=== PATIENT | female | born 1930 | race Caucasian/White ===

== ENCOUNTER 2016-11-28 16:16 | Inpatient (IN) | payer MEDICARE, BC ==
[~2016-11-28] VITALS: Ht 152.4 cm; Wt 48.9 kg
[~2016-11-28 16:16] MED LIST: ALBU8I INH; APIX2.5T PO; ASPI81TA82 PO; BACT800T5 PO; DIGO0.12 PO; DILT240C7 PO; MAGN1SOL2 PO; MAGO400T PO; MECL25 PO; METO25 PO; METO5TAB PO; PTU50 PO; SYMB80AE INH
[2016-11-28 16:18] VITALS: BP 126/57; PULSE 94; RESP 36; O2SAT 98
--- NOTE | 2016-11-28 16:28 | PD ---
Physical Exam Date Seen by Provider: Nov 28, 2016 Time Seen by Provider: 16:24 Narrative A 6-year-old female with history of increasing shortness of breath and hypoxia. Patient is O2 dependent. Patient was seen at a different hospital yesterday, she was diagnosed with UTI and COPD, treated with a breathing treatment and Bactrim. Patient is O2 dependent on 2 L at home. Patient has been increase in her shortness of breath over the past week. Dr. Wagoner is her primary care physician, who was upset that she didn't have a more complete workup yesterday, and recommended she be seen again today. Patient came in with an O2 sat of 88%. O2 sat at triage is currently 98% on 2 L Vitals are reviewed. Patient awaiting mental bed placement. Data Data Last Documented VS Vital Signs Date Time Temp Pulse Resp B/P (MAP) Pulse Ox O2 Delivery O2 Flow Rate FiO2 11/28/16 16:18 94 36 126/57 (80) 98 Room Air [facility] Medical Record Reviewed: Yes Supervised Visit with THAI: Yes Condition: Stable Rodriguez Pham Nov 28, 2016 16:28
--- NOTE | 2016-11-28 16:57 | RADRPT ---
EXAM DATE/TIME: 11/28/2016 16:43 [facility] COMPARISON: CT ABDOMEN & PELVIS W/O CONTRAST, January 16, 2015, 19:58. CHEST PA & LAT, January 16, 2015, 17:14 . INDICATIONS : Shortness of breath. MEDICAL HISTORY : Hypertension. Chronic obstructive pulmonary disease. Congestive heart SURGICAL HISTORY : Pacemaker. Defibrillator. ENCOUNTER: Initial ACUITY: 1 week PAIN SCORE: 0/10 LOCATION: Bilateral chest FINDINGS: PA and lateral views of the chest demonstrate the lungs to be symmetrically aerated without evidence of mass, infiltrate or effusion. The cardiomediastinal contours are unremarkable. Osseous structure s are intact. A left subclavian transvenous pacer remains in place. Atherosclerotic changes are prese nt in the aorta. Pancreatic calcifications are again noted in the upper abdomen. CONCLUSION: No acute disease. Howie Bach MD on November 28, 2016 at 16:54 Board Certified Radiologist. This report was verified electronically.
[2016-11-28] MEDS ORDERED: SODIUM CHLORIDE 0.9% FLUSH 10 ML FLUSH IVF PRN (18:30)
[2016-11-28] MEDS ORDERED: OXYBXL10 PO (18:42)
[2016-11-28] MEDS ORDERED: LACT1CAP4 (18:42)
[2016-11-28] MEDS ORDERED: ALBUAER3 INH (18:42)
[2016-11-28] MEDS ORDERED: POTA-163 PO (18:42)
[2016-11-28] MEDS ORDERED: REGL10TA5 PO (18:42)
[2016-11-28] MEDS ORDERED: LORA-392 PO (18:42)
[2016-11-28] MEDS ORDERED: NORC5TAB PO (18:42)
[2016-11-28] MEDS ORDERED: SYMB80AE INH (18:42)
[2016-11-28] MEDS ORDERED: OMEP20TA PO (18:42)
[2016-11-28] MEDS ORDERED: DIGO0.12 PO (18:42)
[2016-11-28] MEDS ORDERED: IPRASOL INH (18:42)
[2016-11-28] MEDS ORDERED: APIX2.5T PO (18:42)
[2016-11-28] MEDS ORDERED: METO25TA3 PO (18:42)
[2016-11-28] MEDS ORDERED: IPRA0.02 NEB (18:42)
[2016-11-28] MEDS ORDERED: CARD120T4 PO (18:42)
[2016-11-28] MEDS ORDERED: FURO40TA PO (18:42)
[2016-11-28] MEDS ORDERED: CREON12 PO (18:42)
[2016-11-28] MEDS ORDERED: PROP50TA2 PO (18:42)
--- NOTE | 2016-11-28 18:42 | PD ---
HPI Chief Complaint: Respiratory Symptoms Time Seen by Provider: 18:33 Travel History International Travel<30 days: No Contact w/Intl Traveler<30days: No Traveled to known affect area: No History of Present Illness HPI 81-year-old female came to the emergency room with history of progressive shortness of breath since yesterday. Her daughter is here who is very eager to give the entire history. Patient is hard of hearing as per her and hence she is applying the history. Patient was at [facility] yesterday for shortness of breath and cough. She received breathing treatments 445 minutes. Her white blood cell count was 20,000 and she was diagnosed with UTI and discharged home on Bactrim. Chest x-ray was negative as per the ER physician. Patient says that Bactrim was started and yesterday she was doing okay but this morning she started getting short of breath again. The albuterol at home has finished. She was not given refill prescription for that. Last albuterol was at 12:30 this afternoon. Patient requires home oxygen via nasal cannula 2 L all day. The oxygen demand has not increased. She was saturating initially 94% then she settled down on the stretcher it went up to 99% on the oxygen. No history of fever or chills. As per the daughter patient just recovered from double pneumonia one month ago. This afternoon she called patient's primary care physician who asked her to come to this emergency room to get reevaluated. [facility] Past Medical History Narrative Medical List of her past medical, surgical, social and family history is reviewed from the nursing note. Hx Anticoagulant Therapy: Yes (D/C X 4 DAYS AGO) Anemia: Yes Arthritis: Yes Asthma: No Atrial Fibrillation: Yes Autoimmune Disease: No Anxiety: No Depression: No Heart Rhythm Problems: Yes Cancer: Yes (FALLOPIAN CA) Cardiac Catheterization: Yes (NO STENTS JUNE 2012) Cardiomyopathy: Yes Cardiovascular Problems: Yes High Cholesterol: No Chemotherapy: Yes Chest Pain: No Congestive Heart Failure: Yes COPD: Yes Cerebrovascular Accident: No Diabetes: No Diminished Hearing: Yes (LEFT) Endocrine: No Gastrointestinal Disorders: No GERD: No Glaucoma: No Genitourinary: No Headaches: Yes Hepatitis: No Hiatal Hernia: No Hypertension: Yes Immune Disorder: No Implanted Vascular Access Dvce: Yes Kidney Stones: No Musculoskeletal: Yes Neurologic: No Psychiatric: No Reproductive: No Respiratory: Yes Immunizations Current: Yes Migraines: No Myocardial Infarction: No Radiation Therapy: No Renal Failure: No Seizures: No Sickle Cell Disease: No Sleep Apnea: No Thyroid Disease: No Ulcer: No PNEUMOCCOCAL Vaccine (Year): 1 Menopausal: Yes : 1 Para: 1 Miscarriage: 0 : 0 Past Surgical History Abdominal Surgery: No AICD: Yes Appendectomy: Yes Arteriovenous Shunt: No Body Medical Devices: pacemaker and defibrillator per chart Cardiac Surgery: No Cholecystectomy: Yes Coronary Artery Bypass Graft: No Ear Surgery: No Endocrine Surgery: No Eye Surgery: No Genitourinary Surgery: No Gynecologic Surgery: Yes Hysterectomy: Yes Insulin Pump: No Joint Replacement: No Neurologic Surgery: No Oral Surgery: Yes (TEETH REMOVED) Pacemaker: Yes Thoracic Surgery: No Tonsillectomy: Yes Other Surgery: Yes Social History Alcohol Use: No Tobacco Use: No Substance Use: No Allergies-Medications (Allergen,Severity, Reaction): Coded Allergies: MRI PRECAUTION (Verified Allergy, Severe, PACEMAKER/ JA 09/07/10, 11/28/16) NON REVO 05/19/12 KMD amiodarone (Unverified Allergy, Severe, Anaphylaxis, 11/28/16) levofloxacin (Verified Allergy, Severe, breathing issues, 11/28/16) diatrizoate meglumine (Unverified Allergy, Unknown, 11/28/16) gadobenic acid (Unverified Allergy, Unknown, 11/28/16) gadodiamide (Unverified Allergy, Unknown, 11/28/16) gadoteridol (Unverified Allergy, Unknown, 11/28/16) iodixanol (Unverified Allergy, Unknown, 11/28/16) iohexol (Unverified Allergy, Unknown, 11/28/16) ciprofloxacin (Unverified Adverse Reaction, Severe, Nausea/Vomiting, ) metronidazole (Unverified Adverse Reaction, Severe, Diarrhea, 11/28/16) morphine (Unverified Adverse Reaction, Severe, Confusion, 11/28/16) tramadol (Unverified Adverse Reaction, Severe, Nausea/Vomiting, 11/28/16) PT STATS NOT ALLERGIC TO. GASTRIC UPSET ONLY. SHE HAS TOLERATED PERCOCET IN THE PAST. Comments List of her allergies reviewed from the nursing note. Reported Meds & Prescriptions Reported Meds & Active Scripts Active Reported Symbicort Inh (Budesonide/Formoterol Fumarate) 80-4.5 Mcg/Act Aero 2 Puff INH Q12HR Reglan (Metoclopramide HCl) 10 Mg Tab 10 Mg PO TIDAC Propylthiouracil 50 Mg Tab 50 Mg PO DAILY Proair Hfa 8.5 GM Inh (Albuterol Sulfate) 90 Mcg/Act Aer 1 Puff INH Q4H PRN 108 mcg/actuation Potassium Chloride ER (Potassium Chloride) 20 Meq Tab 20 Meq PO BID Omeprazole 20 Mg Tab 20 Mg PO DAILY [place] (Hydrocodone-Acetaminophen) 5-325 mg Tab 1 Tab PO Q4H PRN Metoprolol Tartrate 25 Mg Tab 25 Mg PO BID Ipratropium Neb (Ipratropium [place]) 0.5 Mg/2.5 Ml Amp 0.5 Mg NEB Q4HR NEB Furosemide 40 Mg Tab 40 Mg PO BID Duoneb (Ipratropium-Albuterol Neb) 0.5-2.5 Mg/3 Ml Neb 1 Nebule INH Q4HR NEB Ditropan XL 24 HR (Oxybutynin Chloride) 10 Mg Tab 10 Mg PO DAILY Cardizem (Diltiazem HCl) 120 Mg Tab 120 Mg PO DAILY Digoxin 0.125 Mg Tab 0.125 Mg PO DAILY Creon (Amylase/Lipase/Protease) 12,000-38,000-60,000 Units Cap 1 Cap PO TIDPC Ativan (Lorazepam) 0.5 Mg Tab 0.5 Mg PO Q8H PRN Eliquis (Apixaban) 2.5 Mg Tab 2.5 Mg PO BID Abatinex (Lactobacillus) 680 Mg (750 Million Cell) Cap Narrative Medication List of her home medications reviewed from the nursing note. Review of Systems Except as stated in HPI: all other systems reviewed are Neg Physical Exam Narrative GENERAL: Awake, alert, elderly, poor hygiene, malodorous SKIN: Focused skin assessment warm/dry. HEAD: Atraumatic. Normocephalic. EYES: Pupils equal and round. No scleral icterus. No injection or drainage. ENT: No nasal bleeding or discharge. Mucous membranes pink and moist. NECK: Trachea midline. No JVD. CARDIOVASCULAR: Regular rate and rhythm. No murmur appreciated. RESPIRATORY: No accessory muscle use. Clear to auscultation. Breath sounds equal bilaterally. GASTROINTESTINAL: Abdomen soft, non-tender, nondistended. Hepatic and splenic margins not palpable. MUSCULOSKELETAL: No obvious deformities. No clubbing. No cyanosis. No edema. NEUROLOGICAL: Awake and alert. No obvious cranial nerve deficits. Motor grossly within normal limits. Normal speech. PSYCHIATRIC: Appropriate mood and affect; insight and judgment normal. Data Data Last Documented VS Orders Orders Chest, Pa & Lat (11/28/16 16:28) Complete Blood Count With Diff (11/28/16 18:25) Basic Metabolic Panel (Bmp) (11/28/16 18:25) B-Type Natriuretic Peptide (11/28/16 18:25) Prothrombin Time / Inr (Pt) (11/28/16 18:25) Ckmb (Isoenzyme) Profile (11/28/16 18:25) Troponin I (11/28/16 18:25) Blood Culture (11/28/16 18:25) Iv Access Insert/Monitor (11/28/16 18:25) Electrocardiogram (11/28/16 18:25) Ecg Monitoring (11/28/16 18:25) Oximetry (11/28/16 18:25) Oxygen Administration (11/28/16 18:25) Sodium Chloride 0.9% Flush (Ns Flush) (11/28/16 18:30) Albuterol Neb (Albuterol Neb) (11/28/16 18:30) Ct Thorax/ Chest Wo Iv Contras (11/28/16 ) CKMB (11/28/16 18:50) CKMB% (11/28/16 18:50) Methylprednisolone So Succ Inj (Solumedr (11/28/16 20:24) Ceftriaxone Inj (Rocephin Inj) (11/28/16 20:30) Azithromycin Inj (Zithromax Inj) (11/28/16 20:30) Admit Order (Ed Use Only) (11/28/16 ) Labs Laboratory Tests Test 11/28/16 18:50 White Blood Count 26.9 TH/MM3 Red Blood Count 3.84 MIL/MM3 Hemoglobin 9.8 GM/DL Hematocrit 30.2 % Mean Corpuscular Volume 78.7 FL Mean Corpuscular Hemoglobin 25.6 PG Mean Corpuscular Hemoglobin Concent 32.6 % Red Cell Distribution Width 15.8 % Platelet Count 410 TH/MM3 Mean Platelet Volume 7.3 FL Neutrophils (%) (Auto) 93.2 % Lymphocytes (%) (Auto) 4.0 % Monocytes (%) (Auto) 2.6 % Eosinophils (%) (Auto) 0.0 % Basophils (%) (Auto) 0.2 % Neutrophils # (Auto) 25.1 TH/MM3 Lymphocytes # (Auto) 1.1 TH/MM3 Monocytes # (Auto) 0.7 TH/MM3 Eosinophils # (Auto) 0.0 TH/MM3 Basophils # (Auto) 0.1 TH/MM3 CBC Comment DIFF FINAL Differential Comment Prothrombin Time 12.2 SEC Prothromb Time International Ratio 1.1 RATIO Blood Urea Nitrogen 38 MG/DL Creatinine 1.63 MG/DL Random Glucose 176 MG/DL Calcium Level 9.1 MG/DL Sodium Level 135 MEQ/L Potassium Level 3.0 MEQ/L Chloride Level 98 MEQ/L Carbon Dioxide Level 22.8 MEQ/L Anion Gap 14 MEQ/L Estimat Glomerular Filtration Rate 30 ML/MIN Total Creatine Kinase 120 U/L Creatine Kinase MB 2.5 NG/ML Troponin I LESS THAN 0.02 NG/ML B-Type Natriuretic Peptide 494 PG/ML MDM Medical Decision Making Medical Screen Exam Complete: Yes Emergency Medical Condition: Yes Medical Record Reviewed: Yes Interpretation(s) Twelve-lead EKG was reviewed by me. Normal sinus rhythm, PACs, left axis deviation, LVH, poor R-wave progression, old anterior and inferior GA. Heart rate of 91 bpm. Differential Diagnosis Pneumonia, CHF, bronchitis, COPD exacerbation Narrative Course 6:41 PM patient will be getting 2 albuterol treatments. Awaiting for the blood test results. I will order a CT scan of her chest without IV contrast. Case will be signed out to the oncoming ER physician. Procedures EKG Prior to Arrival: No Condition: Stable Iglesia Elam MD Nov 28, 2016 18:42
[2016-11-28 18:43] VITALS: O2SAT 98
[2016-11-28 18:47] VITALS: BP 152/74; PULSE 91; RESP 21; O2SAT 98
[2016-11-28 18:57] VITALS: O2SAT 98
[2016-11-28] MEDS: RESP: ALBUTEROL 2.5 MG/3 ML NEB (SCH) INH (18:57)
--- NOTE | 2016-11-28 18:59 | RADRPT ---
EXAM DATE/TIME: 11/28/2016 18:41 [facility] COMPARISON: CHEST PA & LAT, November 28, 2016, 16:43. CT THORAX W/O CONTRAST, March 27, 2009, 20:03. INDICATIONS : Shortness of breath today. RADIATION DOSE: 3.79 CTDIvol (mGy) MEDICAL HISTORY : Congestive hearrt failure. fallopian cancer SURGICAL HISTORY : Appendectomy. Hysterectomy.Cholecystectomy. ENCOUNTER: Initial ACUITY: 1 day PAIN SCALE: 0/10 LOCATION: Bilateral chest TECHNIQUE: Volumetric scanning of the chest was performed. Using automated exposure control and adjustment of t he mA and/or kV according to patient size, radiation dose was kept as low as reasonably achievable to obtain optimal diagnostic quality images. DICOM format image data is available electronically for r eview and comparison. Follow-up recommendations for detected pulmonary nodules are based at a minimum on nodule size and pa tient risk factors according to Fleischner Society Guidelines. FINDINGS: LUNGS: There is no consolidation or pneumothorax. No concerning pulmonary nodule is visualized. There is hy perinflation and underlying emphysema. PLEURAE: There is no pleural thickening or pleural effusion. MEDIASTINUM: The heart and great vessels demonstrate no acute abnormality. There is no mediastinal or hilar lymph adenopathy. There is a transvenous pacer in place. AXILLAE: Within normal limits. No lymphadenopathy. MUSCULOSKELETAL: Osteopenia, degenerative change and scoliosis. MISCELLANEOUS: The visualized upper abdominal organs demonstrate no acute abnormality. There is a stable left thyroi d mass and calcifications. CONCLUSION: 1. Underlying emphysema and hyperinflation with no evidence of pneumonia or pulmonary edema. 2. 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 Howie Bach MD on November 28, 2016 at 18:51 Board Certified Radiologist. This report was verified electronically.
[2016-11-28 19:26] LABS: AUTOMATED NEUTROPHIL # 25.1 TH/MM3 (1.8-7.7); BASOPHIL # 0.1 TH/MM3 (0-0.2); BASOPHIL % 0.2 % (0.0-2.0); HEMATOCRIT 30.2 % (35.0-46.0); HEMO FLAGS DIFF FINAL; LYMPHOCYTE # 1.1 TH/MM3 (1.0-4.8); MEAN CELL VOLUME 78.7 FL (80.0-100.0); MEAN CORPUSCULAR HEMOGLOBIN 25.6 PG (27.0-34.0); MEAN CORPUSCULAR HGB CONC 32.6 % (32.0-36.0); MONO % 2.6 % (0.0-8.0); NEUT % 93.2 % (16.0-70.0); PLATELET COUNT 410 TH/MM3 (150-450); RED BLOOD COUNT 3.84 MIL/MM3 (4.00-5.30); RED CELL DISTRIBUTION WIDTH 15.8 % (11.6-17.2); WHITE BLOOD COUNT 26.9 TH/MM3 (4.0-11.0)
[2016-11-28 19:41] LABS: INTERNATIONAL NORMALIZED RATIO 1.1 RATIO; PROTHROMBIN TIME - PATIENT 12.2 SEC (9.8-11.6)
[2016-11-28 19:56] LABS: ANION GAP 14 MEQ/L (5-15); BICARBONATE 22.8 MEQ/L (21.0-32.0); BLOOD UREA NITROGEN 38 MG/DL (7-18); CHLORIDE 98 MEQ/L (98-107); GLOMERULAR FILTRATION RATE 30 ML/MIN (>89); SODIUM (NA) 135 MEQ/L (136-145)
[2016-11-28 20:00] LABS: CREATINE KINASE 120 U/L (26-192)
[2016-11-28 20:13] LABS: CKMB 2.5 NG/ML (0.5-3.6)
[2016-11-28] MEDS ORDERED: methylPREDNISolone SOD SUCC 125 MG/2 ML VIAL IV PUSH STA (20:24)
[2016-11-28] MEDS ORDERED: cefTRIAXone INJ 1,000 MG in SODIUM CHLORIDE 0.9% INJ 100 ML IV ONE (20:30)
[2016-11-28] MEDS ORDERED: AZITHROMYCIN INJ 500 MG in SODIUM CHLOR 0.9% 250 ML INJ 250 ML IV ONE (20:30)
[2016-11-28 20:54] VITALS: O2SAT 96
[2016-11-28 22:13] VITALS: BP 152/63; PULSE 99; RESP 18; O2SAT 96
[2016-11-28] MEDS ORDERED: ACETAMINOPHEN/HYDROcodone 325 MG/5 MG TAB PO PRN (23:00)
[2016-11-28] MEDS ORDERED: SENNOSIDES 8.6 MG TAB PO PRN (23:00)
[2016-11-28] MEDS ORDERED: NALOXONE HCL 0.4 MG/ML AMP IV PUSH PRN (23:00)
[2016-11-28] MEDS ORDERED: LACTULOSE SYRUP 20 GM/30 ML CUP PO PRN (23:00)
[2016-11-28] MEDS ORDERED: BISACODYL 10 MG SUPP RECTAL PRN (23:00)
[2016-11-28] MEDS ORDERED: MAGNESIUM HYDROXIDE SUSP 30 ML CUP PO PRN (23:00)
[2016-11-28] MEDS ORDERED: ONDANSETRON HCL 4 MG/2 ML VIAL IVP PRN (23:00)
--- NOTE | 2016-11-28 23:04 | PD ---
Data Data Last Documented VS Vital Signs Date Time Temp Pulse Resp B/P (MAP) Pulse Ox O2 Delivery O2 Flow Rate FiO2 11/28/16 22:13 99 18 152/63 (92) 96 Nasal Cannula 2.00 Orders Orders Chest, Pa & Lat (11/28/16 16:28) Complete Blood Count With Diff (11/28/16 18:25) Basic Metabolic Panel (Bmp) (11/28/16 18:25) B-Type Natriuretic Peptide (11/28/16 18:25) Prothrombin Time / Inr (Pt) (11/28/16 18:25) Ckmb (Isoenzyme) Profile (11/28/16 18:25) Troponin I (11/28/16 18:25) Urinalysis - C+S If Indicated (11/28/16 18:25) Blood Culture (11/28/16 18:25) Iv Access Insert/Monitor (11/28/16 18:25) Electrocardiogram (11/28/16 18:25) Ecg Monitoring (11/28/16 18:25) Oximetry (11/28/16 18:25) Oxygen Administration (11/28/16 18:25) Sodium Chloride 0.9% Flush (Ns Flush) (11/28/16 18:30) Albuterol Neb (Albuterol Neb) (11/28/16 18:30) Ct Thorax/ Chest Wo Iv Contras (11/28/16 ) CKMB (11/28/16 18:50) CKMB% (11/28/16 18:50) Methylprednisolone So Succ Inj (Solumedr (11/28/16 20:24) Ceftriaxone Inj (Rocephin Inj) (11/28/16 20:30) Azithromycin Inj (Zithromax Inj) (11/28/16 20:30) Admit Order (Ed Use Only) (11/28/16 ) Labs Laboratory Tests Test 11/28/16 18:50 White Blood Count 26.9 TH/MM3 Red Blood Count 3.84 MIL/MM3 Hemoglobin 9.8 GM/DL Hematocrit 30.2 % Mean Corpuscular Volume 78.7 FL Mean Corpuscular Hemoglobin 25.6 PG Mean Corpuscular Hemoglobin Concent 32.6 % Red Cell Distribution Width 15.8 % Platelet Count 410 TH/MM3 Mean Platelet Volume 7.3 FL Neutrophils (%) (Auto) 93.2 % Lymphocytes (%) (Auto) 4.0 % Monocytes (%) (Auto) 2.6 % Eosinophils (%) (Auto) 0.0 % Basophils (%) (Auto) 0.2 % Neutrophils # (Auto) 25.1 TH/MM3 Lymphocytes # (Auto) 1.1 TH/MM3 Monocytes # (Auto) 0.7 TH/MM3 Eosinophils # (Auto) 0.0 TH/MM3 Basophils # (Auto) 0.1 TH/MM3 CBC Comment DIFF FINAL Differential Comment Prothrombin Time 12.2 SEC Prothromb Time International Ratio 1.1 RATIO Blood Urea Nitrogen 38 MG/DL Creatinine 1.63 MG/DL Random Glucose 176 MG/DL Calcium Level 9.1 MG/DL Sodium Level 135 MEQ/L Potassium Level 3.0 MEQ/L Chloride Level 98 MEQ/L Carbon Dioxide Level 22.8 MEQ/L Anion Gap 14 MEQ/L Estimat Glomerular Filtration Rate 30 ML/MIN Total Creatine Kinase 120 U/L Creatine Kinase MB 2.5 NG/ML Troponin I LESS THAN 0.02 NG/ML B-Type Natriuretic Peptide 494 PG/ML MDM Supervised Visit with THAI: No Narrative Course Assumed care patient, 86 years old with appears to be bronchitis and COPD exacerbation. Labs show significant leukocytosis. She didn't elevated white count yesterday when she was seen in the hospital as well. She looks generally well. She is not acutely short of breath. She has about partial rhonchorous cough. CT negative for pneumonia. We'll plan on admission for COPD exacerbation and bronchitis. Condition: Stable John Levy MD Nov 28, 2016 23:04
[2016-11-28] MEDS: RESP: ALBUTEROL 2.5 MG/IPRATROPIUM 0.5 MG NEB (SCH) INH (23:16)
[2016-11-28] MEDS: RESP: IPRATROPIUM 0.5 MG/2.5 ML NEB NEB SCH (23:17)
[2016-11-29] VITALS (9 sets, daily range): BP systolic 116–142; BP diastolic 54–66; PULSE 92–107; RESP 15–22; TEMP 97.9–98.3; O2SAT 95–100
[2016-11-29] MEDS: methylPREDNISolone SOD SUCC 125 MG/2 ML VIAL IV PUSH SCH ×4 (00:50→23:44)
[2016-11-29] MEDS: RESP: ALBUTEROL 2.5 MG/IPRATROPIUM 0.5 MG NEB (SCH) INH ×6 (03:16→23:46)
[2016-11-29] MEDS: RESP: IPRATROPIUM 0.5 MG/2.5 ML NEB NEB SCH ×4 (03:18→23:52)
[2016-11-29 05:30] LABS: CREATINE KINASE 84 U/L (26-192)
[2016-11-29] MEDS ORDERED: DILTIAZEM 120 MG PO SCH (09:00)
--- NOTE | 2016-11-29 09:20 | HHI.PR ---
Objective Objective Results - Vital Signs Date Time Temp Pulse Resp B/P (MAP) Pulse Ox O2 Delivery O2 Flow Rate FiO2 11/29/16 08:08 98.1 100 16 117/61 (79) 97 11/29/16 07:36 97 Nasal Cannula 2.00 11/29/16 03:43 98.0 92 16 130/62 (84) 95 11/29/16 00:28 97.9 97 18 133/63 (86) 96 11/28/16 23:58 11/28/16 22:13 99 18 152/63 (92) 96 Nasal Cannula 2.00 11/28/16 20:54 96 Nasal Cannula 2.00 11/28/16 18:57 98 Nasal Cannula 2.00 11/28/16 18:47 91 21 152/74 (100) 98 Nasal Cannula 2.00 11/28/16 18:43 Nasal Cannula 1.00 11/28/16 18:43 Nasal Cannula 2.00 11/28/16 18:43 98 Nasal Cannula 2.00 11/28/16 16:18 94 36 126/57 (80) 98 Room Air Result Diagram: 11/28/16 1850 11/28/16 1850 A/P Assessment and Plan [id number] COPD exacerbation, with emphysema CHF, compensated, chronic CKD, 3 with renal insufficiency Hypokalemia Leukocytosis Recent UTI Poor historian Drea Lockhart Nov 29, 2016 09:20
--- NOTE | 2016-11-29 10:23 | MH ---
cc: AKSSANDRA MORRISSEY MD DATE OF ADMISSION: 11/28/2016 DATE OF 1930 CHIEF COMPLAINT Shortness of breath. Travel in the last 30 days: None. HISTORY OF PRESENT ILLNESS This is a 81-year-old white female whose chief complaint is shortness of breath. She states that it has been off and on for the last few days and it is worse with exertion. According to the record the patient was seen at [facility] on 11/27/2016 for some of the same symptoms of shortness of breath and also was noted to have a UTI with leukocytosis. The patient was stabilized, sent home on Bactrim but sometime in the evening became short of breath again with any activity. She did receive albuterol treatment at 12:30 yesterday afternoon. Oxygen level initially was 94% when placed on the stretcher but came up to 99%. The patient denies any chest pain. No fever, no chills. She is positive for exertional shortness of breath. She is a poor historian. There is no family members with her right now. Some of this information is being obtained from the record. According to the record the patient was treated for pneumonia one month ago. The patient denies any headache. She has some mild anxiety and is giving limited answers this a.m. to the admission process. PAST MEDICAL HISTORY 1. Anticoagulant therapy was discontinued 5 days ago. 2. Anemia. 3. Arthritis. 4. Atrial fibrillation. 5. Cancer of the fallopian tubes, unknown date. 6. Cardiovascular disease. 7. Congestive heart failure. 8. COPD with emphysema. 9. Hard of hearing predominantly on the left. 10. Headaches. 11. Hypertension. 12. Arthritis. PAST SURGICAL HISTORY 1. Pacemaker and AICD. 2. Appendectomy. 3. Cholecystectomy. 4. Cardiac catheterization in June 2012, no stents were placed. 5. Gynecological surgery. 6. Oral surgery. 7. Appendectomy and tonsillectomy. ALLERGIES MRI PRECAUTIONS due to the AICD, AMIODARONE, CIPRO, DIATRIZOATE MEGLUMINE, GADOBENIC ACID, GABODIAMIDE, GADOTERIDOL, IOHEXOL, LEVOFLOXACIN, MORPHINE, TRAMADOL, METRONIDAZOLE. MEDICATION Reported medications: 1. Symbicort. 2. Reglan. 3. Pro-Air. 4. Potassium. 5. Omeprezole. 6. [place]. 7. Metoprolol. 8. Lasix. 9. DuoNebs. 10. Diprivan. 11. Propylthiouracil. 12. Cardizem. 13. Dig. 14. Creon. 15. Ativan. 16. Eliquis. 17. Abatinex which is lactobacillus. SOCIAL HISTORY According to the record the patient has a daughter. She states that she lives with her. She states previous tobacco use but has not smoked in 30 years. Previous alcohol use but has not drank beer in 10 years. No illicit drugs. REVIEW OF SYSTEMS A limited review except what is listed in the HPI, this includes chiefly her shortness of breath with exertion, recent UTI treatment regimen on Bactrim, poor historian and any other symptoms mentioned, if not mentioned, negative for now. VITAL SIGNS: Temperature is 98.1, pulse is between 92 and 100, respirations 16-18, blood pressure initially on admission 152, in the ER 152/63, now 117/61, O2 sat 97 currently on 2 liters nasal cannula. PHYSICAL EXAMINATION GENERAL: Elderly frail white female, looks to be her stated age, resting in the bed, minimal conversation except after things that she wants. SKIN: Skin is thin turgor, pale, warm and dry. She does have a small abrasion on her upper chest which is open to air and nonbleeding, does not know what happened to her. HEENT: Atraumatic, normocephalic. PERRLA. Mucous membranes were dry and pale. NECK: Neck is thin, supple. CARDIOVASCULAR: S1-S2, rhythm is mildly irregular, no audible murmurs, rubs or gallops. RESPIRATORY: Diminished decreased breath sounds but no obvious rhonchi or wheezing. ABDOMEN: Flat, soft, nontender, nondistended, soft bowel sounds but present. MUSCULOSKELETAL: Generalized weakened, frail condition but moves them with purpose. NEUROLOGIC: Her speech is understandable, minimal conversation. PSYCHIATRIC: Mood and affect are noted to be a poor historian, oriented to her family members but does not recollect some of her recent history, time or place. DIAGNOSTIC DATA WBC count 26.9, RBC 3.84, hemoglobin 9.8, hematocrit 30.2, platelet count 410. Diff on the neutrophil percentage 93.2, lymphocytes 4, PT/INR 1.1. Chemistry sodium 135, potassium 3, chloride 98, CO2 22.8, BUN 38, creatinine 1.63, GFR 30, random glucose 176, calcium 9.1, total creatinine kinase 120 and now 84. Troponins less than 0.02 x2. BNP 494. IMAGING STUDIES Imaging studies show normal chest x-ray, CT shows underlying emphysema and hyperinflation but no evidence of pneumonia or pulmonary edema. Stable calcified mass in the left lobe of the thyroid. ASSESSMENT AND PLAN 1. COPD exacerbation. 2. Urinary tract infection. 3. 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 4. Chronic compensated congestive heart failure. 5. Hypertension. 6. Nonischemic cardiomyopathy. 7. Atrial fibrillation. Our plan is to admit initially for observation. The patient received her initial labs and workup in the emergency room. Urinalysis pending. She received dose of IV steroids, IV Rocephin and IV Azithromycin. Stool softeners, laxatives and bowel regimen will be monitored. SCDs for DVT prophylaxis. Medications have been reconciled. Gentle hydration with IV fluids. DuoNebs, oxygen, 40 mg of Lasix will be given b.i.d., Dig 0.125 mg daily. The patient will receive her Budeson/formot two puffs every 12 hours. She will be placed on Eliquis 2.5 b.i.d. which will assist in her DVT prophylaxis. Solu-Medrol IV steroids 80 mg q. 6 and increase her Cardizem dose to 120 p.o. daily. Will monitor her respiratory status. Discharge planning will be based on her response to her plan of care. We will continue to follow. 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 I reviewed the findings presented. I attest that I had a [id number] encounter with the patient on the same day, and personally performed and documented my assessment and findings in the medical record. RIVKA
[2016-11-29] MEDS: cefTRIAXone INJ 1,000 MG in SODIUM CHLORIDE 0.9% INJ 100 ML IV SCH (10:25)
[2016-11-29] MEDS: BUDESONIDE-FORMOTEROL 80/4.5 MCG INHALER INH SCH ×2 (10:25→10:30)
[2016-11-29] MEDS: AZITHROMYCIN INJ 500 MG in SODIUM CHLOR 0.9% 250 ML INJ 250 ML IV SCH (10:29)
[2016-11-29] MEDS: DILTIAZEM-CD 120 MG CAP ER PO SCH (10:32)
[2016-11-29] MEDS: DOCUSATE SODIUM 50 MG/SENNA 8.6 MG TAB PO SCH ×2 (10:35→22:16)
[2016-11-29] MEDS: PANTOPRAZOLE SOD 20 MG DELAYED RELEASE TAB PO SCH (10:36)
[2016-11-29] MEDS: LIPASE/PROTEASE/AMYLASE (12,000/38,000/60,000) CAP PO SCH ×2 (10:36→13:17)
[2016-11-29] MEDS: METOCLOPRAMIDE HCL 10 MG TAB PO SCH ×2 (10:36→12:00)
[2016-11-29] MEDS: PROPYLTHIOURACIL 50 MG TAB PO SCH (10:37)
[2016-11-29] MEDS: METOPROLOL TARTRATE 25 MG TAB PO SCH ×2 (10:37→22:16)
[2016-11-29] MEDS: POTASSIUM CHLORIDE 20 MEQ CONTROLLED RELEASE TAB PO SCH ×2 (10:37→22:16)
[2016-11-29] MEDS: APIXABAN 2.5 MG TABLET PO SCH ×2 (10:38→22:15)
[2016-11-29] MEDS: TOLTERODINE TARTRATE 4 MG CAP LA PO SCH (10:38)
[2016-11-29] MEDS: DIGOXIN 0.125 MG TAB PO SCH (10:39)
[2016-11-29 12:39] LABS: AUTOMATED NEUTROPHIL # 18.2 TH/MM3 (1.8-7.7); HEMATOCRIT 26.5 % (35.0-46.0); HEMO FLAGS DIFF FINAL; LYMPH % 3.4 % (9.0-44.0); LYMPHOCYTE # 0.7 TH/MM3 (1.0-4.8); MEAN CELL VOLUME 79.5 FL (80.0-100.0); MEAN CORPUSCULAR HEMOGLOBIN 26.2 PG (27.0-34.0); MEAN CORPUSCULAR HGB CONC 32.9 % (32.0-36.0); MONO % 1.5 % (0.0-8.0); NEUT % 95.1 % (16.0-70.0); PLATELET COUNT 311 TH/MM3 (150-450); RED BLOOD COUNT 3.34 MIL/MM3 (4.00-5.30); RED CELL DISTRIBUTION WIDTH 15.9 % (11.6-17.2); WHITE BLOOD COUNT 19.2 TH/MM3 (4.0-11.0)
[2016-11-29 13:00] LABS: BICARBONATE 23.2 MEQ/L (21.0-32.0); POTASSIUM 3.2 MEQ/L (3.5-5.1)
[2016-11-29 13:06] LABS: CREATINE KINASE 117 U/L (26-192)
--- NOTE | 2016-11-29 14:01 | EKG ---
Date Performed: 11/28/2016 Time Performed: 18:34:52 PTAGE: 86 years EKG: Sinus rhythm WITH FREQUENT SUPRAVENTRICULAR PREMATURE COMPLEXES MARKED LEFT AXIS DEVIATION LEFT VENTRICULAR HYPER TROPHY AND ST-T CHANGE ABNORMAL ECG INTERPRETATION BASED ON A DEFAULT AGE OF 40 YEARS PREVIOUS TRACING : 07/18/2015 20.48 Since previous tracing, PACs are new. DOCTOR: Andrez Mills Interpretating Date/Time 11/29/2016 13:59:25
[2016-11-29] MEDS: FUROSEMIDE 40 MG TAB PO SCH ×2 (14:09→22:16)
[2016-11-29] MEDS: SODIUM CHLORIDE 0.9% FLUSH 10 ML FLUSH IV FLUSH SCH ×2 (22:15→22:27)
[2016-11-29] MEDS: LORazepam 0.5 MG TAB PO PRN (23:44)
[2016-11-29] MEDS: SODIUM CHLORIDE 0.9% FLUSH 10 ML FLUSH IV FLUSH PRN (23:44)
[2016-11-30] VITALS (10 sets, daily range): BP systolic 114–154; BP diastolic 61–70; PULSE 52–95; RESP 16–18; TEMP 97.2–98; O2SAT 95–99
[2016-11-30] MEDS: RESP: ALBUTEROL 2.5 MG/IPRATROPIUM 0.5 MG NEB (SCH) INH ×3 (03:46→11:44)
[2016-11-30] MEDS: RESP: IPRATROPIUM 0.5 MG/2.5 ML NEB NEB SCH ×5 (03:58→19:16)
[2016-11-30] MEDS: methylPREDNISolone SOD SUCC 125 MG/2 ML VIAL IV PUSH SCH ×4 (06:31→22:36)
--- NOTE | 2016-11-30 08:59 | HHI.PR ---
Subjective Remarks resting in bed No SOB at rest. Speaks clearly, but poor historian. BP 142/65 afebrile O2 2L Objective Objective Results - Vital Signs Date Time Temp Pulse Resp B/P (MAP) Pulse Ox O2 Delivery O2 Flow Rate FiO2 11/30/16 08:42 96 Nasal Cannula 2.00 11/30/16 04:00 97.8 92 16 127/61 (83) 97 11/29/16 23:48 98 Nasal Cannula 2.00 11/29/16 23:38 96 11/29/16 23:17 Nasal Cannula 2.00 11/29/16 23:17 98.3 94 22 142/65 (90) 98 11/29/16 15:20 98.0 93 17 116/54 (74) 98 11/29/16 10:58 97.9 107 15 127/66 (86) 100 I/O 11/29/16 11/29/16 11/29/16 11/30/16 11/30/16 11/30/16 07:00 15:00 23:00 07:00 15:00 23:00 Intake Total 1040 ml 360 ml Output Total 650 ml Balance 1040 ml -290 ml Intake Oral 840 ml 360 ml IV Total 200 ml Output Urine Total 650 ml # Voids 2 8 2 # Bowel Movements 1 0 Result Diagram: 11/29/16 1150 11/29/16 1150 ROS General: Weakness (age, COPD), Other (10 point ROS done) Neuro/MS: Confusion (poor historian) Physical Exam Physical Exam PHYSICAL EXAMINATION GENERAL: This is a elderly frail female who appears to be in no acute distress. She is awake HEAD: Normocephalic without any lesion or mass noted. Facial features appear symmetric. OROPHARYNGEAL: Oropharynx clear, dry NECK: Supple. No nuchal rigidity or lymphadenopathy. Trachea midline without deviation. CARDIAC: Regular rhythm, regular rate, S1 and S2 are heard. LUNGS: Mild diminished to auscultation bilaterally at bases. No SOB at rest ABDOMEN: flat, Soft, nontender, no organomegaly or masses. Bowel sounds are heard in all four quadrants. No rebound. No guarding. EXTREMITIES: no edema. Pulses equal bilateral. NEUROLOGICAL: Patient mood and affect forgetful and poor historian. [place] SKIN:Warm , thin turgor A/P Assessment and Plan vitals stable, normal trends check labs am COPD exacerbation, with emphysema, No acute SOB at rest. Wean O2 to keep sat at 92 >, Walk test today CHF, compensated, chronic Mild diminished BS, but no cough or acute SOB at rest. medical management CKD, 3 with renal insufficiency monitor I&O, voiding patterns, medical management , incontinent of urine. Hypokalemia K+ given, and recieving PO lasix as home meds. Give 30meq am and pm, recheck BMP am Leukocytosis trending down, probable UTI and steroids. Currently on Rocephin and azithromycin IV Recent UTI continue medical management , attempt UA, pt is incontinent. Poor historian DC planning, lives with daughter but daughter works. PT recommends home PT, CM involvement for planning. D/W pt. D/W nurse D/W Dr. Cohwdary, seen on his behalf Drea Lockhart Nov 30, 2016 08:59
[2016-11-30] MEDS: BUDESONIDE-FORMOTEROL 80/4.5 MCG INHALER INH SCH ×2 (09:00→22:51)
[2016-11-30] MEDS: METOPROLOL TARTRATE 25 MG TAB PO SCH ×2 (09:00→22:38)
[2016-11-30] MEDS: cefTRIAXone INJ 1,000 MG in SODIUM CHLORIDE 0.9% INJ 100 ML IV SCH (09:00)
[2016-11-30] MEDS: DOCUSATE SODIUM 50 MG/SENNA 8.6 MG TAB PO SCH ×2 (09:21→22:36)
[2016-11-30] MEDS: POTASSIUM CHLORIDE 20 MEQ CONTROLLED RELEASE TAB PO SCH ×2 (09:21→21:00)
[2016-11-30] MEDS: POTASSIUM CHLORIDE 10 MEQ CONTROLLED RELEASE TAB PO SCH ×2 (09:22→21:00)
[2016-11-30] MEDS: DILTIAZEM-CD 120 MG CAP ER PO SCH (09:24)
[2016-11-30] MEDS: METOCLOPRAMIDE HCL 10 MG TAB PO SCH ×3 (09:24→17:45)
[2016-11-30] MEDS: DIGOXIN 0.125 MG TAB PO SCH (09:25)
[2016-11-30] MEDS: FUROSEMIDE 40 MG TAB PO SCH ×2 (09:25→22:37)
[2016-11-30] MEDS: PANTOPRAZOLE SOD 20 MG DELAYED RELEASE TAB PO SCH (09:25)
[2016-11-30] MEDS: SODIUM CHLORIDE 0.9% FLUSH 10 ML FLUSH IV FLUSH SCH ×2 (09:28→22:39)
[2016-11-30] MEDS: TOLTERODINE TARTRATE 4 MG CAP LA PO SCH (09:40)
[2016-11-30] MEDS: APIXABAN 2.5 MG TABLET PO SCH ×2 (09:40→22:38)
[2016-11-30] MEDS: LIPASE/PROTEASE/AMYLASE (12,000/38,000/60,000) CAP PO SCH ×3 (09:40→17:44)
[2016-11-30] MEDS: PROPYLTHIOURACIL 50 MG TAB PO SCH (09:40)
[2016-11-30] MEDS: AZITHROMYCIN INJ 500 MG in SODIUM CHLOR 0.9% 250 ML INJ 250 ML IV SCH (10:04)
[2016-11-30 11:26] LABS: BLOOD, URINE NEG (NEG); GLUCOSE,URINE NEG (NEG); KETONE, URINE NEG (NEG); NITRITE,URINE NEG (NEG); PH, URINE 5.5 (5.0-8.5); SQUAMOUS EPITHELIAL CELL URINE <1 /hpf (0-5); URINE COLOR LIGHT-YELLOW (YELLW/STRAW)
[2016-11-30 11:27] LABS: COMMENT (UR) CULT NOT INDICATED; CULTURE IF INDICATED CULT NOT INDICATED
--- NOTE | 2016-11-30 13:46 | PD.CONS ---
HPI Service Cardiology Physicians Consult Requested By Dr Chowdary Reason for Consult SOB, patient known to our practice Primary Care Physician Pedro Wagoner III, MD History of Present Illness The patient is an 86 year old female well known to our practice with a cardiac history atrial fibrillation, ASHD s/p VA 2005, CMP s/p ICD, HTN, HLD and carotid stenosis. The patient presented to the hospital for acutely progressive SOB associated with wheezing and coughing. Cough is wet, but the patient is having difficulty clearing secretions. No fever or chills. She denies increased BLE edema. She was recently treated with Bactrim for UTI. Workup reveal leukocytosis. BNP is elevated without evidence of pulmonary edema. EKG shows afib with slightly elevated rate. Review of Systems Consitutional: COMPLAINS OF: Fatigue, DENIES: Fever, Chills, Weight gain, Weight loss Eyes: DENIES: Amaurosis Fugax, Change in vision HEENT: DENIES: Lightheadedness, Change in hearing Respiratory: COMPLAINS OF: Cough, Shortness of breath, Wheezing, Sputum production, DENIES: See HPI, Snoring Cardiovascular: COMPLAINS OF: Tachycardia, DENIES: See HPI, Chest pain, Palpitations, Syncope Gastrointestinal: DENIES: Nausea, Vomiting, Change in bowel habits, Reflux, Bloody stools, Melena Genitourinary: DENIES: Urinary incontinence, Difficulty voiding Integumentary: DENIES: Rash Neurologic: DENIES: Tingling or numbness, Memory problems, Poor Balance, Stroke symptoms Musculoskeletal: DENIES: Joint pain, Muscle pain, Limited range of motion, Back pain Psychiatric: DENIES: Anxiety, Depression, Sleep disturbances Hematologic: DENIES: Bruising tendencies, Bleeding tendencies Endocrine: DENIES: Weight gain, Weight loss, Thyroid disease Past Family Social History Allergies: Coded Allergies: MRI PRECAUTION (Verified Allergy, Severe, PACEMAKER/ JA 09/07/10, 11/28/16) NON REVO 05/19/12 KMD amiodarone (Unverified Allergy, Severe, Anaphylaxis, 11/28/16) levofloxacin (Verified Allergy, Severe, breathing issues, 11/28/16) diatrizoate meglumine (Unverified Allergy, Unknown, 11/28/16) gadobenic acid (Unverified Allergy, Unknown, 11/28/16) gadodiamide (Unverified Allergy, Unknown, 11/28/16) gadoteridol (Unverified Allergy, Unknown, 11/28/16) iodixanol (Unverified Allergy, Unknown, 11/28/16) iohexol (Unverified Allergy, Unknown, 11/28/16) ciprofloxacin (Unverified Adverse Reaction, Severe, Nausea/Vomiting, ) metronidazole (Unverified Adverse Reaction, Severe, Diarrhea, 11/28/16) morphine (Unverified Adverse Reaction, Severe, Confusion, 11/28/16) tramadol (Unverified Adverse Reaction, Severe, Nausea/Vomiting, 11/28/16) PT STATS NOT ALLERGIC TO. GASTRIC UPSET ONLY. SHE HAS TOLERATED PERCOCET IN THE PAST. Past Medical History See HPI Past Surgical History 2012 cardiac cath decreased LV function, patent coronary arteries 2008 ICD 2008 cardiac cath 2006 cardiac cath Hysterectomy Reported Medications Reported Meds & Active Scripts Active Reported Symbicort Inh (Budesonide/Formoterol Fumarate) 80-4.5 Mcg/Act Aero 2 Puff INH Q12HR Reglan (Metoclopramide HCl) 10 Mg Tab 10 Mg PO TIDAC Propylthiouracil 50 Mg Tab 50 Mg PO DAILY Proair Hfa 8.5 GM Inh (Albuterol Sulfate) 90 Mcg/Act Aer 1 Puff INH Q4H PRN 108 mcg/actuation Potassium Chloride ER (Potassium Chloride) 20 Meq Tab 20 Meq PO BID Omeprazole 20 Mg Tab 20 Mg PO DAILY [place] (Hydrocodone-Acetaminophen) 5-325 mg Tab 1 Tab PO Q4H PRN Metoprolol Tartrate 25 Mg Tab 25 Mg PO BID Ipratropium Neb (Ipratropium [place]) 0.5 Mg/2.5 Ml Amp 0.5 Mg NEB Q4HR NEB Furosemide 40 Mg Tab 40 Mg PO BID Duoneb (Ipratropium-Albuterol Neb) 0.5-2.5 Mg/3 Ml Neb 1 Nebule INH Q4HR NEB Ditropan XL 24 HR (Oxybutynin Chloride) 10 Mg Tab 10 Mg PO DAILY Cardizem (Diltiazem HCl) 120 Mg Tab 120 Mg PO DAILY Digoxin 0.125 Mg Tab 0.125 Mg PO DAILY Creon (Amylase/Lipase/Protease) 12,000-38,000-60,000 Units Cap 1 Cap PO TIDPC Ativan (Lorazepam) 0.5 Mg Tab 0.5 Mg PO Q8H PRN Eliquis (Apixaban) 2.5 Mg Tab 2.5 Mg PO BID Abatinex (Lactobacillus) 680 Mg (750 Million Cell) Cap Active Ordered Medications Current Medications Medications (Trade) Dose Ordered Sig/Melita Route Start Time Stop Time Status Last Admin (NS Flush) 2 ml UNSCH PRN IV FLUSH 11/28/16 23:00 11/29/16 23:44 (NS Flush) 2 ml BID IV FLUSH 11/29/16 09:00 11/30/16 09:28 (Zofran Inj) 4 mg Q6H PRN IVP 11/28/16 23:00 (Narcan Inj) 0.4 mg UNSCH PRN IV PUSH 11/28/16 23:00 (Constance-Colace) 1 tab BID PO 11/29/16 09:00 11/30/16 09:21 (Milk Of Magnesia Liq) 30 ml Q12H PRN PO 11/28/16 23:00 (Senokot) 17.2 mg Q12H PRN PO 11/28/16 23:00 (Dulcolax Supp) 10 mg DAILY PRN RECTAL 11/28/16 23:00 (Lactulose Liq) 30 ml DAILY PRN PO 11/28/16 23:00 (Eliquis) 2.5 mg BID PO 11/29/16 09:00 11/30/16 09:40 (Symbicort 80-4.5 Mcg Inh) 2 puff Q12HR INH 11/29/16 09:00 11/30/16 09:00 (Lanoxin) 0.125 mg DAILY PO 11/29/16 09:00 11/30/16 09:25 (Lasix) 40 mg BID PO 11/29/16 09:00 11/30/16 09:25 ([place] 5-325 Mg) 1 tab Q4H PRN PO 11/28/16 23:00 (Atrovent Neb) 0.5 mg Q4HR NEB NEB 11/29/16 00:00 (Ativan) 0.5 mg Q8H PRN PO 11/28/16 23:00 11/29/16 23:44 (Reglan) 10 mg TIDAC PO 11/29/16 08:00 11/30/16 13:04 (Lopressor) 25 mg BID PO 11/29/16 09:00 11/30/16 09:00 (Creon 12-38-60) 1 cap TIDPC PO 11/29/16 09:30 11/30/16 13:04 (KCl) 20 meq BID PO 11/29/16 09:00 11/30/16 09:21 (Ptu) 50 mg DAILY PO 11/29/16 09:00 11/30/16 09:40 (Protonix) 20 mg DAILY PO 11/29/16 09:00 11/30/16 09:25 (Detrol La) 4 mg DAILY PO 11/29/16 09:00 11/30/16 09:40 (SoluMEDROL INJ) 80 mg Q6HR IV PUSH 11/29/16 00:00 11/30/16 13:03 Ceftriaxone Sodium 1000 mg/ Sodium Chloride 100 ml @ 200 mls/hr Q24H IV 11/29/16 09:00 11/30/16 09:00 Azithromycin 500 mg/Sodium Chloride 250 ml @ 250 mls/hr Q24H IV 11/29/16 09:00 11/30/16 10:04 (Cardizem Cd) 120 mg DAILY PO 11/29/16 09:00 11/30/16 09:24 (KCl) 30 meq BID PO 11/30/16 09:00 11/30/16 21:01 11/30/16 09:22 (Pneumovax-23 Inj) 25 mcg ONCE ONCE IM 12/01/16 09:00 12/01/16 09:01 (Flu (Quadrivalent) Vaccine Inj) 0.5 ml ONCE ONCE IM 12/01/16 09:00 12/01/16 09:01 Family History non contributory Social History lives with daughter at farm in [facility] Physical Exam Vital Signs Vital Signs Date Time Temp Pulse Resp B/P (MAP) Pulse Ox O2 Delivery O2 Flow Rate FiO2 11/30/16 12:00 98.0 95 16 154/70 (98) 95 11/30/16 09:25 90 11/30/16 09:25 96 Nasal Cannula 2.00 11/30/16 08:42 96 Nasal Cannula 2.00 11/30/16 08:00 97.8 90 18 133/66 (88) 96 11/30/16 04:00 97.8 92 16 127/61 (83) 97 11/29/16 23:48 98 Nasal Cannula 2.00 11/29/16 23:38 96 11/29/16 23:17 Nasal Cannula 2.00 11/29/16 23:17 98.3 94 22 142/65 (90) 98 11/29/16 15:20 98.0 93 17 116/54 (74) 98 Physical Exam GENERAL: Thin,elderly female SKIN: Warm and dry. HEAD: Atraumatic. Normocephalic. EYES: Pupils equal and round. No scleral icterus. No injection or drainage. ENT: No nasal bleeding or discharge. Mucous membranes pink and moist. NECK: Trachea midline. CARDIOVASCULAR: Irreg irreg, tachycardia, ICD RESPIRATORY: No accessory muscle use. bilateral rhonchi and wheezing, inspiratory cough GASTROINTESTINAL: Abdomen soft, non-tender, nondistended. . MUSCULOSKELETAL: Extremities without clubbing, cyanosis, or edema. NEUROLOGICAL: Awake and alert. No obvious cranial nerve deficits. Motor grossly within normal limits. Five out of 5 muscle strength in the arms and legs. Normal speech. PSYCHIATRIC: Appropriate mood and affect; insight and judgment normal. Laboratory Laboratory Tests Test 11/30/16 10:20 Urine Color LIGHT-YELLOW Urine Turbidity CLEAR Urine pH 5.5 Urine Specific [place] 1.007 Urine Protein NEG Urine Glucose (UA) NEG Urine Ketones NEG Urine Occult Blood NEG Urine Nitrite NEG Urine Bilirubin NEG Urine Urobilinogen LESS THAN 2.0 Urine Leukocyte Esterase NEG Urine RBC LESS THAN 1 Urine WBC 1 Urine Squamous Epithelial Cells <1 Microscopic Urinalysis Comment CULT NOT INDICATED Date/Time Source Procedure Growth Status 11/28/16 18:50 Blood Peripheral Aerobic Blood Culture - Preliminary NO GROWTH IN 2 DAYS Resulted 11/28/16 18:50 Blood Peripheral Anaerobic Blood Culture - Preliminary NO GROWTH IN 2 DAYS Resulted Result Diagram: 11/29/16 1150 11/29/16 1150 Imaging Last 72 hours Impressions Chest X-Ray 11/28/16 1628 Signed Impressions: Service Date/Time: Monday, November 28, 2016 16:43 - CONCLUSION: No acute disease. Howie Bach MD Chest CT 11/28/16 0000 Signed Impressions: Service Date/Time: Monday, November 28, 2016 18:41 - CONCLUSION: 1. Underlying emphysema and hyperinflation with no evidence of pneumonia or pulmonary edema. 2. 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 Howie Bach MD Assessment and Plan Assessment and Plan SOB due to COPD exacerbation BNP elevation likely due to COPD exacerbation. No signs of fluid overload. Chronic systolic CHF Cardiomyopathy EF 45-50%, AICD Atrial fibrillation on Eliquis UTI 11/27/2016 + Providencia stuartii Chronic anemia PLAN: Treat COPD exacerbation Treat UTI We will continue to follow up closely. Patient seen and evaluated by Dr Carrizales who completed face to face encounter and physical exam, and participated in evaluation and management. Tami Pradhan Nov 30, 2016 13:46
[2016-11-30 21:51] LABS: HEMATOCRIT 23.8 % (35.0-46.0); MEAN CELL VOLUME 78.5 FL (80.0-100.0); MEAN CORPUSCULAR HEMOGLOBIN 25.7 PG (27.0-34.0); MEAN CORPUSCULAR HGB CONC 32.7 % (32.0-36.0); PLATELET COUNT 304 TH/MM3 (150-450); RED BLOOD COUNT 3.03 MIL/MM3 (4.00-5.30); RED CELL DISTRIBUTION WIDTH 16.4 % (11.6-17.2); REVIEW FLAG FINAL; WHITE BLOOD COUNT 16.7 TH/MM3 (4.0-11.0)
[2016-11-30] MEDS: LORazepam 0.5 MG TAB PO PRN (23:00)
[2016-11-30 23:21] LABS: BICARBONATE 23.9 MEQ/L (21.0-32.0); POTASSIUM 3.6 MEQ/L (3.5-5.1)
[2016-12-01] VITALS (11 sets, daily range): BP systolic 126–162; BP diastolic 59–93; PULSE 75–86; RESP 16–20; TEMP 97.2–97.9; O2SAT 95–99
[2016-12-01] MEDS ORDERED: INSULIN ASPART 1,000 UNITS/10 ML VIAL SQ ONE (00:30)
[2016-12-01] MEDS: RESP: IPRATROPIUM 0.5 MG/2.5 ML NEB NEB SCH ×7 (00:49→23:22)
[2016-12-01] MEDS: methylPREDNISolone SOD SUCC 125 MG/2 ML VIAL IV PUSH SCH ×4 (06:32→23:51)
[2016-12-01 08:26] LABS: HEMATOCRIT 26.1 % (35.0-46.0); MEAN CELL VOLUME 77.9 FL (80.0-100.0); MEAN CORPUSCULAR HEMOGLOBIN 26.3 PG (27.0-34.0); MEAN CORPUSCULAR HGB CONC 33.8 % (32.0-36.0); PLATELET COUNT 279 TH/MM3 (150-450); RED BLOOD COUNT 3.36 MIL/MM3 (4.00-5.30); RED CELL DISTRIBUTION WIDTH 16.1 % (11.6-17.2); REVIEW FLAG FINAL; WHITE BLOOD COUNT 17.7 TH/MM3 (4.0-11.0)
[2016-12-01 08:38] LABS: BICARBONATE 28.5 MEQ/L (21.0-32.0); POTASSIUM 3.3 MEQ/L (3.5-5.1)
[2016-12-01] MEDS: METOCLOPRAMIDE HCL 10 MG TAB PO SCH ×3 (08:38→18:43)
[2016-12-01] MEDS: BUDESONIDE-FORMOTEROL 80/4.5 MCG INHALER INH SCH ×2 (08:39→20:57)
[2016-12-01] MEDS: cefTRIAXone INJ 1,000 MG in SODIUM CHLORIDE 0.9% INJ 100 ML IV SCH (08:40)
[2016-12-01] MEDS: TOLTERODINE TARTRATE 4 MG CAP LA PO SCH (08:46)
[2016-12-01] MEDS: DILTIAZEM-CD 120 MG CAP ER PO SCH (08:46)
[2016-12-01] MEDS: SODIUM CHLORIDE 0.9% FLUSH 10 ML FLUSH IV FLUSH SCH ×2 (08:46→20:58)
[2016-12-01] MEDS: AZITHROMYCIN INJ 500 MG in SODIUM CHLOR 0.9% 250 ML INJ 250 ML IV SCH (08:46)
[2016-12-01] MEDS: POTASSIUM CHLORIDE 20 MEQ CONTROLLED RELEASE TAB PO SCH ×2 (08:47→20:54)
[2016-12-01] MEDS: FUROSEMIDE 40 MG TAB PO SCH ×2 (08:47→20:53)
[2016-12-01] MEDS: APIXABAN 2.5 MG TABLET PO SCH ×2 (08:47→20:54)
[2016-12-01] MEDS: DIGOXIN 0.125 MG TAB PO SCH (08:47)
[2016-12-01] MEDS: PROPYLTHIOURACIL 50 MG TAB PO SCH (08:48)
[2016-12-01] MEDS: METOPROLOL TARTRATE 25 MG TAB PO SCH ×2 (08:48→20:54)
[2016-12-01] MEDS: PANTOPRAZOLE SOD 20 MG DELAYED RELEASE TAB PO SCH (08:48)
[2016-12-01] MEDS: DOCUSATE SODIUM 50 MG/SENNA 8.6 MG TAB PO SCH ×2 (08:48→20:56)
[2016-12-01] MEDS: LIPASE/PROTEASE/AMYLASE (12,000/38,000/60,000) CAP PO SCH ×3 (08:49→18:05)
[2016-12-01] MEDS ORDERED: INFLUENZA VIRUS VACCINE (QUADRIVALENT) 0.5 ML SYR IM ONE (09:00)
[2016-12-01] MEDS ORDERED: PNEUMOCOCCAL POLYVALENT INJ 25 MCG/0.5 ML SYR IM ONE (09:00)
[2016-12-01] MEDS ORDERED: PLEASE DISCONTINUE PREVIOUS SUPPLEMENTAL SCALE INSULIN ORDERS ONE (12:00)
[2016-12-01] MEDS ORDERED: GLUCAGON 1 MG/ML VIAL OTHER PRN (12:00)
[2016-12-01] MEDS ORDERED: DEXTROSE 50% IN WATER 50 ML VIAL(D50) IV PUSH PRN (12:00)
[2016-12-01] MEDS: MEDIUM DOSE INSULIN NOVOLOG SUPPLEMENTAL SCALE SQ SCH ×3 (12:51→20:55)
--- NOTE | 2016-12-01 14:12 | HHI.PR ---
Subjective Subjective Remarks mildly sob with wheezing no cp GRINDSTONE awake, oriented x 3. Pt. able to verbalize why she is hospitalized daughter at d, multiple questions asked about dc planning, DCF involvement, etc. Review of Systems Constitutional Constitutional Remarks 12 point ros completed, negative except as noted above, unreliable. GRINDSTONE Vitals/Results Vital Signs Vital Signs Date Time Temp Pulse Resp B/P (MAP) Pulse Ox O2 Delivery O2 Flow Rate FiO2 12/01/16 12:15 97.7 84 20 156/68 (97) 98 12/01/16 08:30 95 Nasal Cannula 2.00 12/01/16 08:17 97.8 85 18 151/59 (89) 98 12/01/16 07:15 95 Nasal Cannula 2.00 12/01/16 04:00 97.6 83 17 143/68 (93) 99 12/01/16 00:00 97.8 86 16 126/62 (83) 96 11/30/16 22:00 97.2 88 16 128/62 (84) 99 11/30/16 20:00 Nasal Cannula 2.00 11/30/16 20:00 85 11/30/16 19:18 97 Nasal Cannula 2.00 11/30/16 16:00 97.5 84 18 114/63 (80) 97 11/30/16 15:42 98 Nasal Cannula 1.50 CBC/BMP: 12/01/16 0739 12/01/16 0739 Lab Results Laboratory Tests Test 11/30/16 20:34 12/01/16 07:39 White Blood Count 16.7 TH/MM3 17.7 TH/MM3 Red Blood Count 3.03 MIL/MM3 3.36 MIL/MM3 Hemoglobin 7.8 GM/DL 8.8 GM/DL Hematocrit 23.8 % 26.1 % Mean Corpuscular Volume 78.5 FL 77.9 FL Mean Corpuscular Hemoglobin 25.7 PG 26.3 PG Mean Corpuscular Hemoglobin Concent 32.7 % 33.8 % Red Cell Distribution Width 16.4 % 16.1 % Platelet Count 304 TH/MM3 279 TH/MM3 Mean Platelet Volume 7.0 FL 7.1 FL Blood Urea Nitrogen 42 MG/DL 42 MG/DL Creatinine 1.98 MG/DL 1.58 MG/DL Random Glucose 406 MG/DL 189 MG/DL Calcium Level 7.7 MG/DL 8.1 MG/DL Sodium Level 132 MEQ/L 133 MEQ/L Potassium Level 3.6 MEQ/L 3.3 MEQ/L Chloride Level 94 MEQ/L 95 MEQ/L Carbon Dioxide Level 23.9 MEQ/L 28.5 MEQ/L Anion Gap 14 MEQ/L 10 MEQ/L Estimat Glomerular Filtration Rate 24 ML/MIN 31 ML/MIN Physical Exam General General Appearance: Well Developed, No Acute Distress, Comfortable Eyes Eye Exam: Pupils Equal, Pupils Reactive Ears & Nose Ears & Nose Exam: Nasal Mucosa [place] Throat Throat Exam: Oral Mucosa [place] & Moist Neck Neck Exam: Neck Supple, Trachea Midline Pulmonary Resp Exam: Rhonchi Resp Remarks exp. wheeze Cardiology CV Exam: Regular Gastrointestinal/Abdomen GI Exam: Soft, Non-Tender, Bowel Sounds Present, Non-Distended Musculoskeletal MS Exam: Joints Intact Integumentary Skin Exam: Warm, Dry Extremeties Extremities Exam: No Edema, Pedal Pulses Palpable Neurologic Neuro Exam: Alert, Awake, Oriented, Speech Clear, Moving All Extremities, No Focal Deficits Neuro Remarks GRINDSTONE Psychiatric Psych Exam: Appropriate Responses VTE Prophylaxis VTE Remarks Eliquis Assessment/Plan Problem List: (1) COPD (chronic obstructive pulmonary disease) ICD Codes: J44.9 - Chronic obstructive pulmonary disease Status: Acute (2) CKD (chronic kidney disease) stage 3, GFR 30-59 ml/min ICD Codes: N18.3 - Chronic kidney disease, stage 3 (moderate) Status: Acute (3) Nonischemic cardiomyopathy ICD Codes: I42.9 - Nonischemic cardiomyopathy Status: Chronic (4) Hypertension ICD Codes: I10 - Hypertension Status: Chronic (5) Atrial fibrillation ICD Codes: I48.91 - Atrial fibrillation Status: Chronic (6) Congestive heart failure ICD Codes: I50.9 - Heart failure, unspecified Status: Acute (7) Hyperlipidemia ICD Codes: E78.5 - Hyperlipidemia, unspecified Status: Chronic (8) Diabetes 1.5, managed as type 2 ICD Codes: E10.9 - Type 1 diabetes mellitus without complications Status: Chronic (9) AICD (automatic cardioverter/defibrillator) present ICD Codes: Z95.810 - Presence of automatic (implantable) cardiac defibrillator Status: Chronic Assessment/Plan COPD exacerbation -continue with oxygen -continue abx -duonebs -wean down IV steroids -pulm consult pending -some improvement, still wheezing CHF, compensated, chronic Non ischemic cardiomyopathy Afib -continue with Lasix 40 mg PO BID -continue Dig/BB/CCB -continue Eliquis -cardiology input appreciated CKD, 3 -avoid nephrotoxic agents -monitor I/O -follow BMP . Hypokalemia -continue with scheduled K -replace K today Leukocytosis -on steroids, trending Recent UTI -UA okay, no infection DM II -accuchecks AC/HS with low dose ISS CM for dc planning D/W JANE Ballard wants to make sure pt. is not discharged due to home being in deplorable state. DCF concerned pt. not competent. Pt. slightly GRINDSTONE but oriented x 3 and able to make decisions. She was examined in the presence of nurse D/W daughter, she has called DCF multiple times no answer. Will have Veronica speak to her PT eval Poss dc in 1-2 days D/W pt. and daughter. D/W nurse D/W Dr. Chowdary This patient was seen by myself and Dr. Chowdary, this note is written on his behalf. Problem Qualifiers (1) COPD (chronic obstructive pulmonary disease): Qualified Codes: J44.1 - Chronic obstructive pulmonary disease with (acute) exacerbation (2) Hypertension: Qualified Codes: I10 - Essential (primary) hypertension (3) Atrial fibrillation: Qualified Codes: I48.91 - Unspecified atrial fibrillation (4) Congestive heart failure: Qualified Codes: I50.23 - Acute on chronic systolic (congestive) heart failure (5) Hyperlipidemia: Qualified Codes: E78.5 - Hyperlipidemia, unspecified Sofia Pena Dec 01, 2016 14:12
[2016-12-01] MEDS ORDERED: POTASSIUM CHLORIDE 25 MEQ EFFERVESCENT TAB PO ONE (14:15)
--- NOTE | 2016-12-01 16:04 | PD.CARD.PN ---
Subjective Subjective Remarks Breathing improved, but still worse compared to baseline. Continues to have wheezing. No nausea or vomiting. Objective Medications Current Medications Medications (Trade) Dose Ordered Sig/Melita Route Start Time Stop Time Status Last Admin (NS Flush) 2 ml UNSCH PRN IV FLUSH 11/28/16 23:00 11/29/16 23:44 (NS Flush) 2 ml BID IV FLUSH 11/29/16 09:00 12/01/16 08:46 (Zofran Inj) 4 mg Q6H PRN IVP 11/28/16 23:00 (Narcan Inj) 0.4 mg UNSCH PRN IV PUSH 11/28/16 23:00 (Constance-Colace) 1 tab BID PO 11/29/16 09:00 12/01/16 08:48 (Milk Of Magnesia Liq) 30 ml Q12H PRN PO 11/28/16 23:00 (Senokot) 17.2 mg Q12H PRN PO 11/28/16 23:00 (Dulcolax Supp) 10 mg DAILY PRN RECTAL 11/28/16 23:00 (Lactulose Liq) 30 ml DAILY PRN PO 11/28/16 23:00 (Eliquis) 2.5 mg BID PO 11/29/16 09:00 12/01/16 08:47 (Symbicort 80-4.5 Mcg Inh) 2 puff Q12HR INH 11/29/16 09:00 12/01/16 08:39 (Lanoxin) 0.125 mg DAILY PO 11/29/16 09:00 12/01/16 08:47 (Lasix) 40 mg BID PO 11/29/16 09:00 12/01/16 08:47 ([place] 5-325 Mg) 1 tab Q4H PRN PO 11/28/16 23:00 11/30/16 14:23 (Atrovent Neb) 0.5 mg Q4HR NEB NEB 11/29/16 00:00 12/01/16 15:13 (Ativan) 0.5 mg Q8H PRN PO 11/28/16 23:00 11/30/16 23:00 (Lopressor) 25 mg BID PO 11/29/16 09:00 12/01/16 08:48 (Creon 12-38-60) 1 cap TIDPC PO 11/29/16 09:30 12/01/16 12:35 (Ptu) 50 mg DAILY PO 11/29/16 09:00 12/01/16 08:48 (Protonix) 20 mg DAILY PO 11/29/16 09:00 12/01/16 08:48 (Detrol La) 4 mg DAILY PO 11/29/16 09:00 12/01/16 08:46 Ceftriaxone Sodium 1000 mg/ Sodium Chloride 100 ml @ 200 mls/hr Q24H IV 11/29/16 09:00 12/01/16 08:40 Azithromycin 500 mg/Sodium Chloride 250 ml @ 250 mls/hr Q24H IV 11/29/16 09:00 12/01/16 08:46 (Cardizem Cd) 120 mg DAILY PO 11/29/16 09:00 12/01/16 08:46 (KCl) 40 meq BID PO 11/30/16 21:00 12/01/16 08:47 (D50w (Vial) Inj) 50 ml UNSCH PRN IV PUSH 12/01/16 12:00 (Glucagon Inj) 1 mg UNSCH PRN OTHER 12/01/16 12:00 (NovoLOG SUPPLEMENTAL SCALE) 1 ACHS SLIDING SCALE SQ 12/01/16 12:00 12/01/16 12:51 (Reglan) 5 mg TIDAC PO 12/01/16 17:00 (SoluMEDROL INJ) 60 mg Q6HR IV PUSH 12/01/16 18:00 Vital Signs / I&O Vital Signs Date Time Temp Pulse Resp B/P (MAP) Pulse Ox O2 Delivery O2 Flow Rate FiO2 12/01/16 15:13 99 Nasal Cannula 2.00 12/01/16 12:15 97.7 84 20 156/68 (97) 98 12/01/16 08:30 95 Nasal Cannula 2.00 12/01/16 08:17 97.8 85 18 151/59 (89) 98 12/01/16 07:15 95 Nasal Cannula 2.00 12/01/16 04:00 97.6 83 17 143/68 (93) 99 12/01/16 00:00 97.8 86 16 126/62 (83) 96 11/30/16 22:00 97.2 88 16 128/62 (84) 99 11/30/16 20:00 Nasal Cannula 2.00 11/30/16 20:00 85 11/30/16 19:18 97 Nasal Cannula 2.00 I/O 11/30/16 11/30/16 11/30/16 12/01/16 12/01/16 12/01/16 07:00 15:00 23:00 07:00 15:00 23:00 Intake Total 360 ml 830 ml 480 ml 860 ml Output Total 650 ml 800 ml Balance -290 ml 830 ml 480 ml 60 ml Intake Oral 360 ml 480 ml 480 ml 860 ml IV Total 350 ml Output Urine Total 650 ml 800 ml # Voids 2 2 3 # Bowel Movements 0 0 Physical Exam GENERAL: Elderly female, daughter in the room SKIN: Warm and dry. HEAD: Normocephalic. EYES: No scleral icterus. No injection or drainage. NECK: Supple, trachea midline. CARDIOVASCULAR: Irreg irreg RESPIRATORY: I/E wheezing, rhonchi, nasal cannula GASTROINTESTINAL: Abdomen soft, non-tender, nondistended. MUSCULOSKELETAL: No cyanosis, or edema. BACK: Nontender without obvious deformity. No CVA tenderness. Laboratory Laboratory Tests Test 11/30/16 20:34 12/01/16 07:39 White Blood Count 16.7 TH/MM3 17.7 TH/MM3 Red Blood Count 3.03 MIL/MM3 3.36 MIL/MM3 Hemoglobin 7.8 GM/DL 8.8 GM/DL Hematocrit 23.8 % 26.1 % Mean Corpuscular Volume 78.5 FL 77.9 FL Mean Corpuscular Hemoglobin 25.7 PG 26.3 PG Mean Corpuscular Hemoglobin Concent 32.7 % 33.8 % Red Cell Distribution Width 16.4 % 16.1 % Platelet Count 304 TH/MM3 279 TH/MM3 Mean Platelet Volume 7.0 FL 7.1 FL Blood Urea Nitrogen 42 MG/DL 42 MG/DL Creatinine 1.98 MG/DL 1.58 MG/DL Random Glucose 406 MG/DL 189 MG/DL Calcium Level 7.7 MG/DL 8.1 MG/DL Sodium Level 132 MEQ/L 133 MEQ/L Potassium Level 3.6 MEQ/L 3.3 MEQ/L Chloride Level 94 MEQ/L 95 MEQ/L Carbon Dioxide Level 23.9 MEQ/L 28.5 MEQ/L Anion Gap 14 MEQ/L 10 MEQ/L Estimat Glomerular Filtration Rate 24 ML/MIN 31 ML/MIN Imaging Last 72 hours Impressions Chest X-Ray 11/28/16 1628 Signed Impressions: Service Date/Time: Monday, November 28, 2016 16:43 - CONCLUSION: No acute disease. Howie Bach MD Assessment and Plan Assessment and Plan SOB due to COPD exacerbation BNP elevation likely due to COPD exacerbation. No signs of fluid overload. Chronic systolic CHF Cardiomyopathy EF 45-50%, AICD Atrial fibrillation on Eliquis. Recent high dig level on recent ER visit. UTI 11/27/2016 + Providencia stuartii Chronic anemia PLAN: Treat COPD exacerbation Treat UTI Continue diuresis Check dig level, decrease digoxin to every other day We will continue to follow up,. Patient seen and evaluated by Dr Carrizales who completed face to face encounter and physical exam, and participated in evaluation and management. Tami Pradhan Dec 01, 2016 16:04
[2016-12-02] VITALS (11 sets, daily range): BP systolic 141–182; BP diastolic 70–79; PULSE 71–87; RESP 16–20; TEMP 97.1–98.2; O2SAT 97–99
[2016-12-02] MEDS: RESP: IPRATROPIUM 0.5 MG/2.5 ML NEB NEB SCH ×5 (02:26→19:52)
[2016-12-02] MEDS: methylPREDNISolone SOD SUCC 125 MG/2 ML VIAL IV PUSH SCH (05:44)
[2016-12-02] MEDS: METOCLOPRAMIDE HCL 10 MG TAB PO SCH ×3 (08:50→17:39)
[2016-12-02] MEDS: BUDESONIDE-FORMOTEROL 80/4.5 MCG INHALER INH SCH ×2 (08:50→20:48)
[2016-12-02] MEDS: DILTIAZEM-CD 120 MG CAP ER PO SCH (08:51)
[2016-12-02] MEDS: cefTRIAXone INJ 1,000 MG in SODIUM CHLORIDE 0.9% INJ 100 ML IV SCH (08:51)
[2016-12-02] MEDS: AZITHROMYCIN INJ 500 MG in SODIUM CHLOR 0.9% 250 ML INJ 250 ML IV SCH (08:51)
[2016-12-02] MEDS: SODIUM CHLORIDE 0.9% FLUSH 10 ML FLUSH IV FLUSH SCH ×2 (08:51→20:49)
[2016-12-02] MEDS: METOPROLOL TARTRATE 25 MG TAB PO SCH ×2 (08:52→20:51)
[2016-12-02] MEDS: APIXABAN 2.5 MG TABLET PO SCH ×2 (08:52→21:05)
[2016-12-02] MEDS: TOLTERODINE TARTRATE 4 MG CAP LA PO SCH (08:52)
[2016-12-02] MEDS: DOCUSATE SODIUM 50 MG/SENNA 8.6 MG TAB PO SCH ×2 (08:52→20:52)
[2016-12-02] MEDS: FUROSEMIDE 40 MG TAB PO SCH ×2 (08:52→20:51)
[2016-12-02] MEDS: POTASSIUM CHLORIDE 20 MEQ CONTROLLED RELEASE TAB PO SCH ×2 (08:52→20:51)
[2016-12-02] MEDS: PANTOPRAZOLE SOD 20 MG DELAYED RELEASE TAB PO SCH (08:53)
[2016-12-02] MEDS: LIPASE/PROTEASE/AMYLASE (12,000/38,000/60,000) CAP PO SCH ×3 (08:53→17:39)
[2016-12-02] MEDS: PROPYLTHIOURACIL 50 MG TAB PO SCH (08:53)
[2016-12-02] MEDS: MEDIUM DOSE INSULIN NOVOLOG SUPPLEMENTAL SCALE SQ SCH ×4 (09:15→20:53)
--- NOTE | 2016-12-02 10:19 | HHI.FF ---
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 My clinical findings support the need for the requested home health care services because: Patient has SOB Deconditioned w/ increased weakness Limited ability to care for self Need for psychosocial assistance High risk of falls I certify that my clinical findings support that this patient is homebound because: Hx COPD- exertion dyspnea/weakness Unsteady gait/balance Need for psychosocial assistance Sofia Pena Dec 02, 2016 10:19
--- NOTE | 2016-12-02 10:25 | HHI.PR ---
Subjective Subjective Remarks Shortness of breath better but still has wheezing Asking when she is going home No chest pain Having bowel movements No nausea, no vomiting Eating okay No fever No family at bedside Review of Systems Constitutional Constitutional Remarks 12 point ros completed, negative except as noted above, unreliable. CHITINA Vitals/Results Vital Signs Vital Signs Date Time Temp Pulse Resp B/P (MAP) Pulse Ox O2 Delivery O2 Flow Rate FiO2 12/02/16 09:10 98 Nasal Cannula 2.00 12/02/16 08:06 97.7 85 16 147/70 (95) 99 12/02/16 06:35 80 12/02/16 04:00 98.2 75 16 159/72 (101) 99 12/02/16 00:00 97.1 71 16 150/74 (99) 97 12/01/16 20:45 97.2 75 18 159/73 (101) 99 12/01/16 20:30 97.9 84 18 146/93 (110) 99 12/01/16 19:31 83 12/01/16 16:29 97.6 81 20 157/72 (100) 99 12/01/16 16:20 97.6 79 18 162/74 (103) 99 12/01/16 16:20 97.6 79 18 162/74 (103) 99 12/01/16 15:13 99 Nasal Cannula 2.00 12/01/16 12:15 97.7 84 20 156/68 (97) 98 CBC/BMP: 12/01/16 0739 12/01/16 0739 Physical Exam General General Appearance: Well Developed, No Acute Distress, Comfortable Eyes Eye Exam: Pupils Equal, Pupils Reactive Ears & Nose Ears & Nose Exam: Nasal Mucosa [place] Throat Throat Exam: Oral Mucosa [place] & Moist Neck Neck Exam: Neck Supple, Trachea Midline Pulmonary Resp Exam: Rhonchi Resp Remarks exp. wheeze Cardiology CV Exam: Regular Gastrointestinal/Abdomen GI Exam: Soft, Non-Tender, Bowel Sounds Present, Non-Distended Musculoskeletal MS Exam: Joints Intact Integumentary Skin Exam: Warm, Dry Extremeties Extremities Exam: No Edema, Pedal Pulses Palpable Neurologic Neuro Exam: Alert, Awake, Oriented, Speech Clear, Moving All Extremities, No Focal Deficits Neuro Remarks [place] Psychiatric Psych Exam: Appropriate Responses VTE Prophylaxis VTE Remarks Eliquis Assessment/Plan Problem List: (1) COPD (chronic obstructive pulmonary disease) ICD Codes: J44.9 - Chronic obstructive pulmonary disease Status: Acute (2) CKD (chronic kidney disease) stage 3, GFR 30-59 ml/min ICD Codes: N18.3 - Chronic kidney disease, stage 3 (moderate) Status: Acute (3) Nonischemic cardiomyopathy ICD Codes: I42.9 - Nonischemic cardiomyopathy Status: Chronic (4) Hypertension ICD Codes: I10 - Hypertension Status: Chronic (5) Atrial fibrillation ICD Codes: I48.91 - Atrial fibrillation Status: Chronic (6) Congestive heart failure ICD Codes: I50.9 - Heart failure, unspecified Status: Acute (7) Hyperlipidemia ICD Codes: E78.5 - Hyperlipidemia, unspecified Status: Chronic (8) Diabetes 1.5, managed as type 2 ICD Codes: E10.9 - Type 1 diabetes mellitus without complications Status: Chronic (9) AICD (automatic cardioverter/defibrillator) present ICD Codes: Z95.810 - Presence of automatic (implantable) cardiac defibrillator Status: Chronic Assessment/Plan COPD exacerbation -continue with oxygen -continue abx -duonebs -wean down IV steroids---decreased 40 mg the every 8 -pulm consult pending-with have nursing call consult again. -some improvement, still wheezing CHF, compensated, chronic Non ischemic cardiomyopathy Afib -continue with Lasix 40 mg PO BID -continue Dig/BB/CCB -continue Eliquis -cardiology input appreciated -Dig level ordered, pending cardiology recommends changing dig to every other day CKD, 3 -avoid nephrotoxic agents -monitor I/O -follow BMP -pending . Hypokalemia -Labs pending today Leukocytosis -on steroids, trending down Recent UTI -UA okay, no infection DM II -accuchecks AC/HS with low dose ISS Continue with Eliquis for DVT prophylaxis D/W JANE Ballard wants to make sure pt. is not discharged due to home being in deplorable state. DCF concerned pt. not competent. Pt. slightly CHITINA but oriented x 3 and able to make decisions. She was examined in the presence of nurse Out of bed daily PT eval Labs pending CM for dc planning-arrange home health care Possible discharge in 1-2 days D/W pt D/W nurse D/W Dr. Chowdary This patient was seen by myself and Dr. Chowdary, this note is written on his behalf. Problem Qualifiers (1) COPD (chronic obstructive pulmonary disease): Qualified Codes: J44.1 - Chronic obstructive pulmonary disease with (acute) exacerbation (2) Hypertension: Qualified Codes: I10 - Essential (primary) hypertension (3) Atrial fibrillation: Qualified Codes: I48.91 - Unspecified atrial fibrillation (4) Congestive heart failure: Qualified Codes: I50.23 - Acute on chronic systolic (congestive) heart failure (5) Hyperlipidemia: Qualified Codes: E78.5 - Hyperlipidemia, unspecified Sofia Pena Dec 02, 2016 10:25
[2016-12-02] MEDS: methylPREDNISolone SOD SUCC 40 MG/1 ML VIAL IV PUSH SCH ×2 (13:28→20:54)
--- NOTE | 2016-12-02 14:16 | PD.CARD.PN ---
Subjective Subjective Remarks The patient states she feels better and is breathing better. Still SOB. HR slightly elevated. Daughter bedside (Tami Pradhan) Objective Medications Current Medications Medications (Trade) Dose Ordered Sig/Melita Route Start Time Stop Time Status Last Admin (NS Flush) 2 ml UNSCH PRN IV FLUSH 11/28/16 23:00 11/29/16 23:44 (NS Flush) 2 ml BID IV FLUSH 11/29/16 09:00 12/02/16 08:51 (Zofran Inj) 4 mg Q6H PRN IVP 11/28/16 23:00 (Narcan Inj) 0.4 mg UNSCH PRN IV PUSH 11/28/16 23:00 (Constance-Colace) 1 tab BID PO 11/29/16 09:00 12/02/16 08:52 (Milk Of Magnesia Liq) 30 ml Q12H PRN PO 11/28/16 23:00 (Senokot) 17.2 mg Q12H PRN PO 11/28/16 23:00 (Dulcolax Supp) 10 mg DAILY PRN RECTAL 11/28/16 23:00 (Lactulose Liq) 30 ml DAILY PRN PO 11/28/16 23:00 (Eliquis) 2.5 mg BID PO 11/29/16 09:00 12/02/16 08:52 (Symbicort 80-4.5 Mcg Inh) 2 puff Q12HR INH 11/29/16 09:00 12/02/16 08:50 (Lasix) 40 mg BID PO 11/29/16 09:00 12/02/16 08:52 ([place] 5-325 Mg) 1 tab Q4H PRN PO 11/28/16 23:00 11/30/16 14:23 (Atrovent Neb) 0.5 mg Q4HR NEB NEB 11/29/16 00:00 12/02/16 11:53 (Ativan) 0.5 mg Q8H PRN PO 11/28/16 23:00 11/30/16 23:00 (Lopressor) 25 mg BID PO 11/29/16 09:00 12/02/16 08:52 (Ptu) 50 mg DAILY PO 11/29/16 09:00 12/02/16 08:53 (Protonix) 20 mg DAILY PO 11/29/16 09:00 12/02/16 08:53 (Detrol La) 4 mg DAILY PO 11/29/16 09:00 12/02/16 08:52 Ceftriaxone Sodium 1000 mg/ Sodium Chloride 100 ml @ 200 mls/hr Q24H IV 11/29/16 09:00 12/02/16 08:51 Azithromycin 500 mg/Sodium Chloride 250 ml @ 250 mls/hr Q24H IV 11/29/16 09:00 12/02/16 08:51 (Cardizem Cd) 120 mg DAILY PO 11/29/16 09:00 12/02/16 08:51 (KCl) 40 meq BID PO 11/30/16 21:00 12/02/16 08:52 (D50w (Vial) Inj) 50 ml UNSCH PRN IV PUSH 12/01/16 12:00 (Glucagon Inj) 1 mg UNSCH PRN OTHER 12/01/16 12:00 (NovoLOG SUPPLEMENTAL SCALE) 1 ACHS SLIDING SCALE SQ 12/01/16 12:00 12/02/16 13:27 (Reglan) 5 mg TIDAC PO 12/01/16 17:00 12/02/16 13:26 (Lanoxin) 0.125 mg EVERY OTHER DAY PO 12/03/16 09:00 (Creon 12-38-60) 2 cap TIDPC PO 12/01/16 18:30 12/02/16 13:27 (SoluMEDROL INJ) 40 mg Q8HR IV PUSH 12/02/16 14:00 12/02/16 13:28 Vital Signs / I&O Vital Signs Date Time Temp Pulse Resp B/P (MAP) Pulse Ox O2 Delivery O2 Flow Rate FiO2 12/02/16 12:00 97.2 86 20 156/72 (100) 98 12/02/16 09:10 98 Nasal Cannula 2.00 12/02/16 08:06 97.7 85 16 147/70 (95) 99 12/02/16 06:35 80 12/02/16 04:00 98.2 75 16 159/72 (101) 99 12/02/16 00:00 97.1 71 16 150/74 (99) 97 12/01/16 20:45 97.2 75 18 159/73 (101) 99 12/01/16 20:30 97.9 84 18 146/93 (110) 99 12/01/16 19:31 83 12/01/16 16:29 97.6 81 20 157/72 (100) 99 12/01/16 16:20 97.6 79 18 162/74 (103) 99 12/01/16 16:20 97.6 79 18 162/74 (103) 99 12/01/16 15:13 99 Nasal Cannula 2.00 I/O 12/01/16 12/01/16 12/01/16 12/02/16 12/02/16 12/02/16 07:00 15:00 23:00 07:00 15:00 23:00 Intake Total 860 ml 350 ml 600 ml Output Total 800 ml 1000 ml Balance 60 ml 350 ml -400 ml Intake Oral 860 ml 600 ml IV Total 350 ml Output Urine Total 800 ml 1000 ml # Voids 2 # Bowel Movements 0 Physical Exam GENERAL: Elderly female, daughter in the room SKIN: Warm and dry. HEAD: Normocephalic. EYES: No scleral icterus. No injection or drainage. NECK: Supple, trachea midline. CARDIOVASCULAR: Irreg irreg RESPIRATORY: I/E wheezing, rhonchi GASTROINTESTINAL: Abdomen soft, non-tender, nondistended. MUSCULOSKELETAL: No cyanosis, or edema. BACK: Nontender without obvious deformity. No CVA tenderness. (Tami Pradhan) Assessment and Plan Assessment and Plan SOB due to COPD exacerbation BNP elevation likely due to COPD exacerbation. No signs of fluid overload. Chronic systolic CHF Cardiomyopathy EF 45-50%, AICD Atrial fibrillation on Eliquis. Recent high dig level on recent ER visit. UTI 11/27/2016 + Providencia stuartii Chronic anemia PLAN: Treat COPD exacerbation- Dr Akins following. Continue diuresis Pending digoxin level We will continue to follow up,. Patient seen and evaluated by Dr Carrizales who completed face to face encounter and physical exam, and participated in evaluation and management. (Tami Pradhan) Assessment and Plan The exam, history, and the medical decision-making described in the above note were completed with the assistance of the mid-level provider. I reviewed and agree with the findings presented. I attest that I had a [id number] encounter with the patient on the same day, and personally performed and documented my assessment and findings in the medical record. Overall stable (Stephanie Carrizales MD) Tami Pradhan Dec 02, 2016 14:16 Stephanie Carrizales MD Dec 04, 2016 09:53
[2016-12-02 15:53] LABS: HEMATOCRIT 31.4 % (35.0-46.0); MEAN CELL VOLUME 78.1 FL (80.0-100.0); MEAN CORPUSCULAR HEMOGLOBIN 26.5 PG (27.0-34.0); MEAN CORPUSCULAR HGB CONC 33.9 % (32.0-36.0); PLATELET COUNT 330 TH/MM3 (150-450); RED BLOOD COUNT 4.02 MIL/MM3 (4.00-5.30); RED CELL DISTRIBUTION WIDTH 16.4 % (11.6-17.2); REVIEW FLAG FINAL; WHITE BLOOD COUNT 18.3 TH/MM3 (4.0-11.0)
[2016-12-02 16:53] LABS: ANION GAP 12 MEQ/L (5-15); BICARBONATE 28.9 MEQ/L (21.0-32.0); BLOOD UREA NITROGEN 47 MG/DL (7-18); CHLORIDE 87 MEQ/L (98-107); GLOMERULAR FILTRATION RATE 32 ML/MIN (>89); MAGNESIUM 1.4 MG/DL (1.5-2.5); POTASSIUM 3.4 MEQ/L (3.5-5.1); SODIUM (NA) 128 MEQ/L (136-145)
[2016-12-02 17:12] LABS: DIGOXIN 1.8 NG/ML (0.8-2.0); TRANSFERRIN IRON PROFILE 177 MG/DL (200-360)
[2016-12-02] MEDS: LORazepam 0.5 MG TAB PO PRN ×2 (20:51→21:00)
--- NOTE | 2016-12-02 21:20 | MB ---
cc: Margarita LARRY DATE OF CONSULTATION 12/02/2016 HISTORY Ms. Frederick is an 81-year-old white female who presented with shortness of breath from home with her daughter. She has had some recent problems with urinary tract infections and in August had an episode of congestive heart failure subsequently went to a nursing facility went back into the hospital in September with pneumonia and then recently with a urinary tract infection in [facility] as an outpatient, but her daughter brought her in here because her breathing just was not what she thought it ought to be. She does have a history of COPD. She has been followed by Dr. Galo in the past but no pulmonary follow-up in the last year. Regular follow up with Dr. Pedor Wagoner. On admission the or four days ago she was started on bronchodilators, oxygen and has improved but continues to wheeze and is quite weak. Her daughter is at the bedside today, is very attentive and really provides most of the information for the patient. She has had no chest pain or hemoptysis. PAST MEDICAL HISTORY There is a history of: 1. Atrial fibrillation but no thromboembolic disease. 2. She has had a chronic anemia. 3. Degenerative arthritis. 4. 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 5. Congestive heart failure. 6. 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 7. Hypertension. 8. Prior appendectomy. 9. Cholecystectomy. 10. Stents in place from a cardiac catheterization about 2012. ALLERGIES Multiple allergies are listed in her EMR. MEDICATIONS Medications are reviewed in the EMR. SOCIAL HISTORY She lives with her daughter. Quit smoking years ago. No alcohol use. REVIEW OF SYSTEMS As noted above. PHYSICAL EXAMINATION GENERAL/VITAL SIGNS: Frail elderly-appearing woman in no distress at rest on 2 liters of oxygen with a sat of 98%. She is afebrile. Her pulse is 80, her respiratory rate is 16-18. HEENT: Sclerae pale, anicteric. Mucous membranes are moist. NECK: The neck veins are flat. LUNGS: She does have some minimal scattered wheezing but no congestion. No rhonchi. CARDIOVASCULAR: Irregular heart rhythm but no harsh murmur. ABDOMEN: Soft. She has no peripheral edema or cyanosis. LABORATORY DATA White count was 26,000 on presentation, it has dropped to about 16-18. BUN and creatinine are elevated at 47 and 1.5. The creatinine was high as 1.98. INR is normal. IMAGING Her chest CT on presentation revealed emphysema but no evidence of pneumonia, mass or pulmonary edema or effusions. DISCUSSION Ms. Frederick presents with a probable both urinary tract infection as well as an exacerbation of COPD, possible some bronchitis but no evidence of pneumonia. Does not appear to be in heart failure. BNP was elevated earlier at 494 and she has been receiving diuretics. She is also on Zithromax and Rocephin for potential infection and nebulized aerosol. I would continue all of this including the methylprednisolone today. Tomorrow we can see if we can switch her, at least begin to switch her to oral therapy. Mobilization will also be helpful because she is awfully weak. Daughter hopes to take her home with her for home care. Further diagnostic and/or therapeutic intervention will depend on her ongoing clinical course. Thank you for asking me to see her with you in consultation. R. MD RADHA Tincoo/FARHANA /6:17 PM /9:05 PM
[2016-12-03] VITALS (10 sets, daily range): BP systolic 139–179; BP diastolic 54–86; PULSE 75–104; RESP 16–22; TEMP 97.3–98.8; O2SAT 95–99
[2016-12-03] MEDS: RESP: IPRATROPIUM 0.5 MG/2.5 ML NEB NEB SCH ×5 (03:37→21:10)
[2016-12-03] MEDS: SODIUM CHLORIDE 0.9% FLUSH 10 ML FLUSH IV FLUSH PRN (05:48)
[2016-12-03] MEDS: methylPREDNISolone SOD SUCC 40 MG/1 ML VIAL IV PUSH SCH (05:48)
[2016-12-03] MEDS: MEDIUM DOSE INSULIN NOVOLOG SUPPLEMENTAL SCALE SQ SCH ×3 (08:00→18:13)
[2016-12-03] MEDS ORDERED: DIGOXIN 0.125 MG TAB PO SCH (09:00)
[2016-12-03] MEDS: cefTRIAXone INJ 1,000 MG in SODIUM CHLORIDE 0.9% INJ 100 ML IV SCH (09:00)
[2016-12-03] MEDS: BUDESONIDE-FORMOTEROL 80/4.5 MCG INHALER INH SCH ×2 (09:00→21:00)
[2016-12-03] MEDS ORDERED: predniSONE 20 MG TAB PO SCH (09:30)
[2016-12-03] MEDS: METOCLOPRAMIDE HCL 10 MG TAB PO SCH ×3 (09:37→18:14)
[2016-12-03] MEDS: DILTIAZEM-CD 120 MG CAP ER PO SCH (09:37)
[2016-12-03] MEDS: APIXABAN 2.5 MG TABLET PO SCH ×2 (09:37→22:09)
[2016-12-03] MEDS: PROPYLTHIOURACIL 50 MG TAB PO SCH (09:37)
[2016-12-03] MEDS: AZITHROMYCIN INJ 500 MG in SODIUM CHLOR 0.9% 250 ML INJ 250 ML IV SCH (09:37)
[2016-12-03] MEDS: LIPASE/PROTEASE/AMYLASE (12,000/38,000/60,000) CAP PO SCH ×3 (09:37→18:14)
--- NOTE | 2016-12-03 09:37 | HHI.PR ---
Subjective Subjective Remarks Patient lying flat in the bed, sleeping Denies any shortness of breath Afebrile Color pale, frail (Drea Lockhart) Review of Systems Constitutional Constitutional: Weakness (age and generalized comorbidities of COPD) Constitutional Remarks 10 point ROS done positives noted (Drea Lockhart) Pulmonary Respiratory: Coughing (occasional nonproductive) (Drea Lockhart) Musculoskeletal MS: Weakness (Drea Lockhart) Psychiatric Psychiatric: Normal Mood (answered questions simply and appropriately) (Drea Lockhart) Vitals/Results Vital Signs Vital Signs Date Time Temp Pulse Resp B/P (MAP) Pulse Ox O2 Delivery O2 Flow Rate FiO2 12/03/16 08:20 98 Nasal Cannula 2.00 12/03/16 08:00 98.0 80 18 139/76 (97) 99 12/03/16 04:00 Nasal Cannula 2.00 12/03/16 04:00 97.9 79 16 156/75 (102) 98 12/03/16 00:00 Nasal Cannula 2.00 12/03/16 00:00 97.3 78 18 151/65 (93) 98 12/02/16 20:35 Nasal Cannula 2.00 12/02/16 20:35 97.5 87 20 141/73 (95) 98 12/02/16 20:00 80 12/02/16 19:54 98 Nasal Cannula 2.00 12/02/16 19:44 79 12/02/16 17:46 98 Nasal Cannula 2.00 12/02/16 16:20 97.4 83 20 182/79 (113) 98 12/02/16 12:00 97.2 86 20 156/72 (100) 98 (Drea Lockhart) CBC/BMP: 12/02/16 1500 12/02/16 1500 Lab Results Laboratory Tests Test 12/02/16 15:00 White Blood Count 18.3 TH/MM3 Red Blood Count 4.02 MIL/MM3 Hemoglobin 10.6 GM/DL Hematocrit 31.4 % Mean Corpuscular Volume 78.1 FL Mean Corpuscular Hemoglobin 26.5 PG Mean Corpuscular Hemoglobin Concent 33.9 % Red Cell Distribution Width 16.4 % Platelet Count 330 TH/MM3 Mean Platelet Volume 7.7 FL Blood Urea Nitrogen 47 MG/DL Creatinine 1.54 MG/DL Random Glucose 243 MG/DL Calcium Level 8.0 MG/DL Phosphorus Level 2.8 MG/DL Magnesium Level 1.4 MG/DL Sodium Level 128 MEQ/L Potassium Level 3.4 MEQ/L Chloride Level 87 MEQ/L Carbon Dioxide Level 28.9 MEQ/L Anion Gap 12 MEQ/L Estimat Glomerular Filtration Rate 32 ML/MIN Iron Level 99 MCG/DL Total Iron Binding Capacity 248 MCG/DL Percent Iron Saturation 40.0 % Vitamin B12 Level 1484 PG/ML Folate 8.1 NG/ML Digoxin Level 1.8 NG/ML Imaging Remarks Last Impressions Chest X-Ray 11/28/16 1628 Signed Impressions: Service Date/Time: Monday, November 28, 2016 16:43 - CONCLUSION: No acute disease. Howie Bach MD Chest CT 11/28/16 0000 Signed Impressions: Service Date/Time: Monday, November 28, 2016 18:41 - CONCLUSION: 1. Underlying emphysema and hyperinflation with no evidence of pneumonia or pulmonary edema. 2. 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 Howie Bach MD Current Medications Administered Medications Medications (Trade) Dose Ordered Sig/Melita Route PRN Reason Start Time Stop Time Status Last Admin Dose Admin Sodium Chloride (NS Flush) 2 ml UNSCH PRN IV FLUSH FLUSH AFTER USING IV ACCESS 11/28/16 23:00 12/03/16 05:48 Sodium Chloride (NS Flush) 2 ml BID IV FLUSH 11/29/16 09:00 12/02/16 20:49 Senna/Docusate Sodium (Constance-Colace) 1 tab BID PO 11/29/16 09:00 12/02/16 08:52 Apixaban (Eliquis) 2.5 mg BID PO 11/29/16 09:00 12/02/16 21:05 Budesonide/ Formoterol Fumarate (Symbicort 80-4.5 Mcg Inh) 2 puff Q12HR INH 11/29/16 09:00 12/02/16 20:48 Furosemide (Lasix) 40 mg BID PO 11/29/16 09:00 12/02/16 20:51 Acetaminophen/ Hydrocodone Bitart ([place] 5-325 Mg) 1 tab Q4H PRN PO PAIN 1-10 11/28/16 23:00 11/30/16 14:23 Ipratropium [place] (Atrovent Neb) 0.5 mg Q4HR NEB NEB 11/29/16 00:00 12/03/16 08:19 Lorazepam (Ativan) 0.5 mg Q8H PRN PO ANXIETY AND/OR AGITATION 11/28/16 23:00 12/02/16 20:51 Metoprolol Tartrate (Lopressor) 25 mg BID PO 11/29/16 09:00 12/02/16 20:51 Propylthiouracil (Ptu) 50 mg DAILY PO 11/29/16 09:00 12/02/16 08:53 Pantoprazole Sodium (Protonix) 20 mg DAILY PO 11/29/16 09:00 12/02/16 08:53 Tolterodine Tartrate (Detrol La) 4 mg DAILY PO 11/29/16 09:00 12/02/16 08:52 Ceftriaxone Sodium 1000 mg/ Sodium Chloride 100 ml @ 200 mls/hr Q24H IV 11/29/16 09:00 12/02/16 08:51 Azithromycin 500 mg/Sodium Chloride 250 ml @ 250 mls/hr Q24H IV 11/29/16 09:00 12/02/16 08:51 Diltiazem HCl (Cardizem Cd) 120 mg DAILY PO 11/29/16 09:00 12/02/16 08:51 Potassium Chloride (KCl) 40 meq BID PO 11/30/16 21:00 12/02/16 20:51 Insulin Aspart (NovoLOG SUPPLEMENTAL SCALE) 1 ACHS SLIDING SCALE SQ 12/01/16 12:00 12/02/16 20:53 Metoclopramide HCl (Reglan) 5 mg TIDAC PO 12/01/16 17:00 12/02/16 17:39 Amylase/Lipase/ Protease ([place]on 12-38-60) 2 cap TIDPC PO 12/01/16 18:30 12/02/16 17:39 Methylprednisolone Sodium Succinate (SoluMEDROL INJ) 40 mg Q8HR IV PUSH 12/02/16 14:00 12/03/16 05:48 (Drea Lockhart) Physical Exam General General Appearance: No Acute Distress, Comfortable Appearance Remarks Thin, frail ([place],Drea M. ADVERTISING INTERN) Eyes Eye Exam: Pupils Equal, Pupils Reactive (Drea Lockhart. ADVERTISING INTERN) Ears & Nose Ears & Nose Exam: Nasal Mucosa [place] (pale) (Drea Lockhart. ADVERTISING INTERN) Throat Throat Exam: Oral Mucosa [place] & Moist (Drea Lockhart. ADVERTISING INTERN) Neck Neck Exam: Neck Supple, Trachea Midline (Drea Lockhart. ADVERTISING INTERN) Pulmonary Resp Exam: Diminished Breath Sounds (occasional cough no rhonchi) (Drea Lockhart ADVERTISING INTERN) Cardiology CV Exam: Irregular (Drea Lockhart ADVERTISING INTERN) Gastrointestinal/Abdomen GI Exam: Soft, Non-Tender, Bowel Sounds Present, Non-Distended GI Remarks Flat abdomen (Drea Lockhart. ADVERTISING INTERN) Musculoskeletal MS Exam: Joints Intact (Drea Lockhart. ADVERTISING INTERN) Integumentary Skin Exam: Warm, Dry (Drea Lockhart ADVERTISING INTERN) Extremeties Extremities Exam: No Edema, Pedal Pulses Palpable (Drea Lockhart ADVERTISING INTERN) Neurologic Neuro Exam: Awake (arouses to verbal stimuli), Oriented (answers questions appropriately this morning related to her symptoms), Speech Clear, Moving All Extremities, No Focal Deficits (Drea Lockhart. ADVERTISING INTERN) Psychiatric Psych Exam: Appropriate Responses (Drea LockhartP) Assessment/Plan Problem List: (1) COPD (chronic obstructive pulmonary disease) ICD Codes: J44.9 - Chronic obstructive pulmonary disease Status: Acute (2) CKD (chronic kidney disease) stage 3, GFR 30-59 ml/min ICD Codes: N18.3 - Chronic kidney disease, stage 3 (moderate) Status: Acute (3) Nonischemic cardiomyopathy ICD Codes: I42.9 - Nonischemic cardiomyopathy Status: Chronic (4) Hypertension ICD Codes: I10 - Hypertension Status: Chronic (5) Atrial fibrillation ICD Codes: I48.91 - Atrial fibrillation Status: Chronic (6) Congestive heart failure ICD Codes: I50.9 - Heart failure, unspecified Status: Acute (7) Hyperlipidemia ICD Codes: E78.5 - Hyperlipidemia, unspecified Status: Chronic (8) Diabetes 1.5, managed as type 2 ICD Codes: E10.9 - Type 1 diabetes mellitus without complications Status: Chronic (9) AICD (automatic cardioverter/defibrillator) present ICD Codes: Z95.810 - Presence of automatic (implantable) cardiac defibrillator Status: Chronic Assessment/Plan Vital signs reviewed, afebrile, BP 156/75 Labs pending for potassium level, BMP ordered, leukocytosis probable secondary to steroid use COPD exacerbation oxygen, dual nebs, steroids continue to taper, 40 mg every 12 hours No shortness of breath no audible wheezing, patient is able to lie flat and denies any shortness of breath this a.m. Appreciate pulmonary input, treatment for UTI and some bronchitis, no evidence of pneumonia, heart failure compensated Possible change to oral therapy today CHF, compensated, chronic Non ischemic cardiomyopathy Afib, CVR, 70-80s, medical management with Eliquis, DVT prophylaxis Medical management with Lasix, Lanoxin, beta rob, and calcium channel rob Cardiology input appreciated , dig level I.8 CKD, 3 -avoid nephrotoxic agents, intake and output DM II -accuchecks AC/HS with low dose ISS and ADA diet CM for dc planning-arrange home health care Discharge possible today D/W pt D/W nurse D/W Dr. Chowdary, seen on his behalf (Drea Lockhart) Assessment/Plan seen, examined by myself, Dr Chowdary, today Discussed with patient She is breathing better Possible switch to oral steroids tomorrow and discharge home Continue physical therapy Discussed with mid level provider The exam, history, and the medical decision-making described in the above note were completed with the assistance of the mid-level provider. I reviewed the findings presented. I attest that I had a [id number] encounter with the patient on the same day, and personally performed and documented my assessment and findings in the medical record. (Yamel Chowdary MD) Problem Qualifiers (1) COPD (chronic obstructive pulmonary disease): Qualified Codes: J44.1 - Chronic obstructive pulmonary disease with (acute) exacerbation (2) Hypertension: Qualified Codes: I10 - Essential (primary) hypertension (3) Atrial fibrillation: Qualified Codes: I48.91 - Unspecified atrial fibrillation (4) Congestive heart failure: Qualified Codes: I50.23 - Acute on chronic systolic (congestive) heart failure (5) Hyperlipidemia: Qualified Codes: E78.5 - Hyperlipidemia, unspecified Drea Lockhart Dec 03, 2016 09:37 Yamel Chowdary MD Dec 03, 2016 16:45
[2016-12-03] MEDS: METOPROLOL TARTRATE 25 MG TAB PO SCH ×2 (09:38→22:09)
[2016-12-03] MEDS: FUROSEMIDE 40 MG TAB PO SCH ×3 (09:38→22:09)
[2016-12-03] MEDS: PANTOPRAZOLE SOD 20 MG DELAYED RELEASE TAB PO SCH (09:38)
[2016-12-03] MEDS: DOCUSATE SODIUM 50 MG/SENNA 8.6 MG TAB PO SCH ×2 (09:38→21:00)
[2016-12-03] MEDS: POTASSIUM CHLORIDE 20 MEQ CONTROLLED RELEASE TAB PO SCH ×2 (09:39→18:14)
[2016-12-03] MEDS: TOLTERODINE TARTRATE 4 MG CAP LA PO SCH (09:39)
[2016-12-03] MEDS: SODIUM CHLORIDE 0.9% FLUSH 10 ML FLUSH IV FLUSH SCH ×2 (09:39→22:10)
[2016-12-03 18:43] LABS: BASOPHIL # 0.1 TH/MM3 (0-0.2); BASOPHIL % 0.2 % (0.0-2.0); HEMATOCRIT 34.9 % (35.0-46.0); HEMO FLAGS DIFF FINAL; LYMPH % 2.3 % (9.0-44.0); LYMPHOCYTE # 0.5 TH/MM3 (1.0-4.8); MEAN CELL VOLUME 78.4 FL (80.0-100.0); MEAN CORPUSCULAR HEMOGLOBIN 26.1 PG (27.0-34.0); MEAN CORPUSCULAR HGB CONC 33.3 % (32.0-36.0); MONO % 3.6 % (0.0-8.0); NEUT % 93.9 % (16.0-70.0); PLATELET COUNT 365 TH/MM3 (150-450); RED BLOOD COUNT 4.45 MIL/MM3 (4.00-5.30); RED CELL DISTRIBUTION WIDTH 16.2 % (11.6-17.2); WHITE BLOOD COUNT 21.4 TH/MM3 (4.0-11.0)
[2016-12-03 19:07] LABS: BICARBONATE 27.8 MEQ/L (21.0-32.0); POTASSIUM 3.7 MEQ/L (3.5-5.1)
[2016-12-03] MEDS ORDERED: methylPREDNISolone SOD SUCC 40 MG/1 ML VIAL IV PUSH SCH (21:00)
[2016-12-03] MEDS: predniSONE 20 MG TAB PO SCH (22:09)
[2016-12-03] MEDS ORDERED: SODIUM CHLOR 0.9% 1000 ML INJ 1,000 ML IV SCH (23:45)
--- NOTE | 2016-12-04 00:38 | RADRPT ---
EXAM DATE/TIME: 12/04/2016 00:01 [place] COMPARISON: ABDOMEN KUB ONLY, December 16, 2014, 16:20. INDICATIONS : Vomiting. MEDICAL HISTORY : Congestive heart failure. Fallopian cancer SURGICAL HISTORY : Appendectomy. Hysterectomy.Cholecystectomy. ENCOUNTER: Initial ACUITY: 1 day PAIN SCORE: 0/10 LOCATION: abdomen FINDINGS: Supine view of the abdomen was performed. Diffuse ileus present. No free air identified. Previous lag screw fixation of both proximal femora. Levoscoliosis. Osteopenia. CONCLUSION: 1. Diffuse ileus without evidence for obstruction. No free air. Fran Kemp MD on December 04, 2016 at 0:35 Board Certified Radiologist. This report was verified electronically.
[2016-12-04] MEDS: predniSONE 20 MG TAB PO SCH ×2 (00:53→09:18)
[2016-12-04] MEDS: APIXABAN 2.5 MG TABLET PO SCH ×2 (00:53→08:37)
[2016-12-04] MEDS: METOPROLOL TARTRATE 25 MG TAB PO SCH ×2 (00:53→09:18)
[2016-12-04] MEDS: MEDIUM DOSE INSULIN NOVOLOG SUPPLEMENTAL SCALE SQ SCH ×3 (00:54→13:35)
[2016-12-04] MEDS: LORazepam 0.5 MG TAB PO PRN (00:54)
[2016-12-04 04:00] VITALS: BP 160/74; PULSE 84; RESP 18; TEMP 97; O2SAT 95
[2016-12-04 08:00] VITALS: BP 177/80; PULSE 88; RESP 18; TEMP 97.8; O2SAT 99
[2016-12-04] MEDS: METOCLOPRAMIDE HCL 10 MG TAB PO SCH ×2 (08:04→12:00)
[2016-12-04] MEDS: AZITHROMYCIN INJ 500 MG in SODIUM CHLOR 0.9% 250 ML INJ 250 ML IV SCH (08:05)
[2016-12-04] MEDS: RESP: IPRATROPIUM 0.5 MG/2.5 ML NEB NEB SCH ×2 (08:23→13:56)
[2016-12-04] MEDS: DILTIAZEM-CD 120 MG CAP ER PO SCH (08:36)
[2016-12-04] MEDS: LIPASE/PROTEASE/AMYLASE (12,000/38,000/60,000) CAP PO SCH ×2 (08:36→13:34)
[2016-12-04] MEDS: PANTOPRAZOLE SOD 20 MG DELAYED RELEASE TAB PO SCH ×2 (08:36→09:18)
[2016-12-04] MEDS: TOLTERODINE TARTRATE 4 MG CAP LA PO SCH (08:37)
[2016-12-04] MEDS: PROPYLTHIOURACIL 50 MG TAB PO SCH (08:37)
[2016-12-04] MEDS: DOCUSATE SODIUM 50 MG/SENNA 8.6 MG TAB PO SCH (08:37)
[2016-12-04] MEDS: POTASSIUM CHLORIDE 20 MEQ CONTROLLED RELEASE TAB PO SCH ×2 (08:37→13:34)
[2016-12-04 09:00] LABS: BICARBONATE 29.5 MEQ/L (21.0-32.0); POTASSIUM 3.9 MEQ/L (3.5-5.1)
[2016-12-04] MEDS: cefTRIAXone INJ 1,000 MG in SODIUM CHLORIDE 0.9% INJ 100 ML IV SCH (09:00)
[2016-12-04] MEDS: BUDESONIDE-FORMOTEROL 80/4.5 MCG INHALER INH SCH (09:00)
[2016-12-04] MEDS: SODIUM CHLORIDE 0.9% FLUSH 10 ML FLUSH IV FLUSH SCH (09:00)
--- NOTE | 2016-12-04 10:33 | HHI.PR ---
Subjective Subjective Remarks sleeping, able to lie flat in bed, No SOB (Drea Lockhart) Review of Systems Constitutional Constitutional: Weakness (age and generalized comorbidities of COPD) Constitutional Remarks 10 point ROS done positives noted (Drea Lockhart) Musculoskeletal MS: Weakness (generalized) (Drea Lockhart) Psychiatric Psychiatric: Normal Mood (answered questions simply and appropriately) (Drea Lockhart) Vitals/Results Vital Signs Vital Signs Date Time Temp Pulse Resp B/P (MAP) Pulse Ox O2 Delivery O2 Flow Rate FiO2 12/04/16 07:15 Nasal Cannula 2.00 12/04/16 04:00 97.0 84 18 160/74 (102) 95 12/03/16 23:14 98.1 104 22 179/86 (117) 95 12/03/16 23:14 2.00 12/03/16 21:11 97 Nasal Cannula 2.00 12/03/16 20:00 Nasal Cannula 2.00 12/03/16 20:00 98.8 93 18 158/54 (88) 95 12/03/16 20:00 91 12/03/16 16:00 98.7 83 18 150/72 (98) 98 12/03/16 12:00 97.7 83 18 156/71 (99) 99 (Drea Lockhart) CBC/BMP: 12/03/16 1823 12/04/16 0744 Lab Results Laboratory Tests Test 12/03/16 18:23 12/04/16 07:44 White Blood Count 21.4 TH/MM3 Red Blood Count 4.45 MIL/MM3 Hemoglobin 11.6 GM/DL Hematocrit 34.9 % Mean Corpuscular Volume 78.4 FL Mean Corpuscular Hemoglobin 26.1 PG Mean Corpuscular Hemoglobin Concent 33.3 % Red Cell Distribution Width 16.2 % Platelet Count 365 TH/MM3 Mean Platelet Volume 7.4 FL Neutrophils (%) (Auto) 93.9 % Lymphocytes (%) (Auto) 2.3 % Monocytes (%) (Auto) 3.6 % Eosinophils (%) (Auto) 0.0 % Basophils (%) (Auto) 0.2 % Neutrophils # (Auto) 20.0 TH/MM3 Lymphocytes # (Auto) 0.5 TH/MM3 Monocytes # (Auto) 0.8 TH/MM3 Eosinophils # (Auto) 0.0 TH/MM3 Basophils # (Auto) 0.1 TH/MM3 CBC Comment DIFF FINAL Differential Comment Blood Urea Nitrogen 58 MG/DL 61 MG/DL Creatinine 1.61 MG/DL 1.54 MG/DL Random Glucose 243 MG/DL 215 MG/DL Calcium Level 8.1 MG/DL 8.0 MG/DL Sodium Level 132 MEQ/L 135 MEQ/L Potassium Level 3.7 MEQ/L 3.9 MEQ/L Chloride Level 92 MEQ/L 96 MEQ/L Carbon Dioxide Level 27.8 MEQ/L 29.5 MEQ/L Anion Gap 12 MEQ/L 10 MEQ/L Estimat Glomerular Filtration Rate 30 ML/MIN 32 ML/MIN Microbiology Microbiology 12/03/16 Stool Occult Blood (CANELO) - Final, Complete HEMOCCULT NEGATIVE Current Medications Administered Medications Medications (Trade) Dose Ordered Sig/Melita Route PRN Reason Start Time Stop Time Status Last Admin Dose Admin Sodium Chloride (NS Flush) 2 ml UNSCH PRN IV FLUSH FLUSH AFTER USING IV ACCESS 11/28/16 23:00 12/03/16 05:48 Sodium Chloride (NS Flush) 2 ml BID IV FLUSH 11/29/16 09:00 12/04/16 09:00 Ondansetron HCl (Zofran Inj) 4 mg Q6H PRN IVP NAUSEA OR VOMITING 11/28/16 23:00 12/03/16 22:09 Senna/Docusate Sodium (Constance-Colace) 1 tab BID PO 11/29/16 09:00 12/04/16 08:37 Apixaban (Eliquis) 2.5 mg BID PO 11/29/16 09:00 12/04/16 08:37 Budesonide/ Formoterol Fumarate (Symbicort 80-4.5 Mcg Inh) 2 puff Q12HR INH 11/29/16 09:00 12/04/16 09:00 Furosemide (Lasix) 40 mg BID PO 11/29/16 09:00 Future Hold 12/03/16 09:38 Acetaminophen/ Hydrocodone Bitart ([place] 5-325 Mg) 1 tab Q4H PRN PO PAIN 1-10 11/28/16 23:00 11/30/16 14:23 Lorazepam (Ativan) 0.5 mg Q8H PRN PO ANXIETY AND/OR AGITATION 11/28/16 23:00 12/04/16 00:54 Metoprolol Tartrate (Lopressor) 25 mg BID PO 11/29/16 09:00 12/04/16 09:18 Propylthiouracil (Ptu) 50 mg DAILY PO 11/29/16 09:00 12/04/16 08:37 Pantoprazole Sodium (Protonix) 20 mg DAILY PO 11/29/16 09:00 12/04/16 09:18 Tolterodine Tartrate (Detrol La) 4 mg DAILY PO 11/29/16 09:00 12/04/16 08:37 Ceftriaxone Sodium 1000 mg/ Sodium Chloride 100 ml @ 200 mls/hr Q24H IV 11/29/16 09:00 12/03/16 09:00 Azithromycin 500 mg/Sodium Chloride 250 ml @ 250 mls/hr Q24H IV 11/29/16 09:00 12/04/16 08:05 Diltiazem HCl (Cardizem Cd) 120 mg DAILY PO 11/29/16 09:00 12/04/16 08:36 Insulin Aspart (NovoLOG SUPPLEMENTAL SCALE) 1 ACHS SLIDING SCALE SQ 12/01/16 12:00 12/04/16 09:17 Metoclopramide HCl (Reglan) 5 mg TIDAC PO 12/01/16 17:00 12/04/16 08:04 Digoxin (Lanoxin) 0.125 mg EVERY OTHER DAY PO 12/03/16 09:00 12/03/16 09:38 Amylase/Lipase/ Protease (Creon 12-38-60) 2 cap TIDPC PO 12/01/16 18:30 12/04/16 08:36 Ipratropium [place] (Atrovent Neb) 0.5 mg TID NEB NEB 12/03/16 14:00 12/04/16 08:23 Prednisone (Deltasone) 20 mg BID PO 12/03/16 21:00 12/04/16 09:18 Potassium Chloride (KCl) 40 meq TID PO 12/03/16 18:00 12/04/16 08:37 Sodium Chloride 1,000 ml @ 75 mls/hr [id number] IV 12/03/16 23:45 12/04/16 00:15 (Drea Lockhart) Physical Exam General General Appearance: No Acute Distress, Comfortable Appearance Remarks Thin, frail (Drea Lockhart INFORMATION SYSTEMS OPERATOR) Eyes Eye Exam: Pupils Equal, Pupils Reactive (Drea Lockhart INFORMATION SYSTEMS OPERATOR) Ears & Nose Ears & Nose Exam: Nasal Mucosa [employer] (pale) (Drea Lockhart INFORMATION SYSTEMS OPERATOR) Throat Throat Exam: Oral Mucosa [employer] & Moist (Drea Lockhart INFORMATION SYSTEMS OPERATOR) Neck Neck Exam: Neck Supple, Trachea Midline (Drea Lockhart INFORMATION SYSTEMS OPERATOR) Pulmonary Resp Exam: Diminished Breath Sounds (occasional cough no rhonchi) Resp Remarks no wheeze (Drea Lockhart INFORMATION SYSTEMS OPERATOR) Cardiology CV Exam: Irregular (Drea Lockhart INFORMATION SYSTEMS OPERATOR) Gastrointestinal/Abdomen GI Exam: Soft, Non-Tender, Bowel Sounds Present, Non-Distended GI Remarks Flat abdomen (Drea Lockhart INFORMATION SYSTEMS OPERATOR) Musculoskeletal MS Exam: Joints Intact (Drea LockhartP) Integumentary Skin Exam: Warm, Dry, Intact (thin turgor, small abrasion upper healing,) (Drea LockhartP) Extremeties Extremities Exam: No Edema, Pedal Pulses Palpable (Drea Lockhart INFORMATION SYSTEMS OPERATOR) Neurologic Neuro Exam: Awake (arouses to verbal stimuli), Oriented (answers questions appropriately this morning related to her symptoms), Speech Clear, Moving All Extremities, No Focal Deficits (Drea Lockhart. INFORMATION SYSTEMS OPERATOR) Psychiatric Psych Exam: Appropriate Responses (Drea Lockhart) Assessment/Plan Problem List: (1) COPD (chronic obstructive pulmonary disease) ICD Codes: J44.9 - Chronic obstructive pulmonary disease Status: Acute (2) CKD (chronic kidney disease) stage 3, GFR 30-59 ml/min ICD Codes: N18.3 - Chronic kidney disease, stage 3 (moderate) Status: Acute (3) Nonischemic cardiomyopathy ICD Codes: I42.9 - Nonischemic cardiomyopathy Status: Chronic (4) Hypertension ICD Codes: I10 - Hypertension Status: Chronic (5) Atrial fibrillation ICD Codes: I48.91 - Atrial fibrillation Status: Chronic (6) Congestive heart failure ICD Codes: I50.9 - Heart failure, unspecified Status: Acute (7) Hyperlipidemia ICD Codes: E78.5 - Hyperlipidemia, unspecified Status: Chronic (8) Diabetes 1.5, managed as type 2 ICD Codes: E10.9 - Type 1 diabetes mellitus without complications Status: Chronic (9) AICD (automatic cardioverter/defibrillator) present ICD Codes: Z95.810 - Presence of automatic (implantable) cardiac defibrillator Status: Chronic Assessment/Plan Vital signs reviewed, afebrile, Labs, leukocytosis probable secondary to steroid use, CKD, K+ 3.9 COPD exacerbation oxygen, dual nebs, steroids taper to PO today. No shortness of breath no audible wheezing, patient is able to lie flat Appreciate pulmonary input, bronchitis, no evidence of pneumonia, heart failure compensated UTI, managed with Cipro. No dysuria CHF, compensated, chronic Afib, CVR, , medical management with Eliquis, DVT prophylaxis Medical management with Lasix, Lanoxin, cardizem, Lopressor Cardiology input appreciated, on Eliquix CKD, 3 -avoid nephrotoxic agents, intake and output Taking PO fluids without cough, labs probably at her baseline DM II -accuchecks AC/HS with low dose ISS and ADA diet CM for dc planning-arrange home health care Discharge planning, possible today if OK with Pulm. CM consult , C D/W pt D/W nurse D/W Dr. Chowdary, seen on his behalf (Drea Lockhart) Assessment/Plan seen, examined by myself, Dr Chowdary, today Discussed with patient and her daughter at her bedside Discussed with pest control worker helper Dr. boston Discharge home today Continue slow taper of prednisone Given a prescription for sliding scale insulin, use regular insulin, get a glucometer Patient does not have evidence of diabetes at this time except significantly high blood sugar with steroids, at some point over 400 She is recommended to do Accu-Cheks twice a day And keep monitoring her blood sugar for the long-term And use diabetic diet Follow-up with primary physician and pest control worker helper in a week's time Discussed with mid level provider The exam, history, and the medical decision-making described in the above note were completed with the assistance of the mid-level provider. I reviewed the findings presented. I attest that I had a [id number] encounter with the patient on the same day, and personally performed and documented my assessment and findings in the medical record 40 minutes. (Yamel Chowdary MD) Problem Qualifiers (1) COPD (chronic obstructive pulmonary disease): Qualified Codes: J44.1 - Chronic obstructive pulmonary disease with (acute) exacerbation (2) Hypertension: Qualified Codes: I10 - Essential (primary) hypertension (3) Atrial fibrillation: Qualified Codes: I48.91 - Unspecified atrial fibrillation (4) Congestive heart failure: Qualified Codes: I50.23 - Acute on chronic systolic (congestive) heart failure (5) Hyperlipidemia: Qualified Codes: E78.5 - Hyperlipidemia, unspecified Drea Lockhart Dec 04, 2016 10:33 Yamel Chowdary MD Dec 04, 2016 18:36
[2016-12-04 12:00] VITALS: BP 178/79; PULSE 77; RESP 18; TEMP 98.1; O2SAT 98
[2016-12-04] MEDS ORDERED: NOVOLOGSS SQ (15:47)
[2016-12-04] MEDS ORDERED: PRED20 PO (15:47)
[2016-12-04] MEDS ORDERED: POTA20TA5 PO (15:47)
--- NOTE | 2016-12-04 16:25 | HHI.DS ---
Discharge Summary Admission Date Nov 29, 2016 at 18:55 Discharge Date: Dec 04, 2016 Admitting Diagnosis COPD exacerbation, bronchitis Brief History 81-year-old white female chief complaint was shortness of breath. She stated that it has been off and on for a few days and it was worse with exertion. According to the record the patient was seen at [facility] on 11/27/2016 for some of the same symptoms of shortness of breath and also was noted to have a UTI with leukocytosis. The patient was stabilized, sent home on Bactrim but sometime in the evening became short of breath again with any activity. She received albuterol treatments. The patient denied any chest pain. No fever, no chills. She was a poor historian. There are no family members with her right now. Some of this information was obtained from the record. CBC/BMP: 12/03/16 1823 12/04/16 0744 Significant Findings Laboratory Tests Test 12/02/16 15:00 12/03/16 18:23 12/04/16 07:44 White Blood Count 18.3 TH/MM3 (4.0-11.0) 21.4 TH/MM3 (4.0-11.0) Hemoglobin 10.6 GM/DL (11.6-15.3) Hematocrit 31.4 % (35.0-46.0) 34.9 % (35.0-46.0) Mean Corpuscular Volume 78.1 FL (80.0-100.0) 78.4 FL (80.0-100.0) Mean Corpuscular Hemoglobin 26.5 PG (27.0-34.0) 26.1 PG (27.0-34.0) Blood Urea Nitrogen 47 MG/DL (7-18) 58 MG/DL (7-18) 61 MG/DL (7-18) Creatinine 1.54 MG/DL (0.50-1.00) 1.61 MG/DL (0.50-1.00) 1.54 MG/DL (0.50-1.00) Random Glucose 243 MG/DL (74-106) 243 MG/DL (74-106) 215 MG/DL (74-106) Calcium Level 8.0 MG/DL (8.5-10.1) 8.1 MG/DL (8.5-10.1) 8.0 MG/DL (8.5-10.1) Magnesium Level 1.4 MG/DL (1.5-2.5) Sodium Level 128 MEQ/L (136-145) 132 MEQ/L (136-145) 135 MEQ/L (136-145) Potassium Level 3.4 MEQ/L (3.5-5.1) Chloride Level 87 MEQ/L (98-107) 92 MEQ/L (98-107) 96 MEQ/L (98-107) Estimat Glomerular Filtration Rate 32 ML/MIN (>89) 30 ML/MIN (>89) 32 ML/MIN (>89) Total Iron Binding Capacity 248 MCG/DL (250-450) Vitamin B12 Level 1484 PG/ML (193-986) Neutrophils (%) (Auto) 93.9 % (16.0-70.0) Lymphocytes (%) (Auto) 2.3 % (9.0-44.0) Neutrophils # (Auto) 20.0 TH/MM3 (1.8-7.7) Lymphocytes # (Auto) 0.5 TH/MM3 (1.0-4.8) Imaging Last Impressions Abdomen X-Ray 12/03/16 0000 Signed Impressions: Service Date/Time: Sunday, December 04, 2016 00:01 - CONCLUSION: 1. Diffuse ileus without evidence for obstruction. No free air. Fran Kemp MD Chest X-Ray 11/28/16 1628 Signed Impressions: Service Date/Time: Monday, November 28, 2016 16:43 - CONCLUSION: No acute disease. Howie Bach MD Chest CT 11/28/16 0000 Signed Impressions: Service Date/Time: Monday, November 28, 2016 18:41 - CONCLUSION: 1. Underlying emphysema and hyperinflation with no evidence of pneumonia or pulmonary edema. 2. 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 Howie Bach MD PE at Discharge General Appearance: No Acute Distress, Comfortable Appearance Remarks Thin, frail Eyes Eye Exam: Pupils Equal, Pupils Reactive Ears & Nose Ears & Nose Exam: Nasal Mucosa [place] (pale) Throat Throat Exam: Oral Mucosa [place] & Moist Neck Neck Exam: Neck Supple, Trachea Midline Pulmonary Resp Exam: Diminished Breath Sounds (occasional cough no rhonchi) Resp Remarks no wheeze Cardiology CV Exam: Irregular Gastrointestinal/Abdomen GI Exam: Soft, Non-Tender, Bowel Sounds Present, Non-Distended GI Remarks Flat abdomen Musculoskeletal MS Exam: Joints Intact Integumentary Skin Exam: Warm, Dry, Intact (thin turgor, small abrasion upper healing,) Extremeties Extremities Exam: No Edema, Pedal Pulses Palpable Neurologic Neuro Exam: Awake (arouses to verbal stimuli), Oriented (answers questions appropriately this morning related to her symptoms), Speech Clear, Moving All Extremities, No Focal Deficits Psychiatric Psych Exam: Appropriate Responses Hospital Course These are the diagnoses that were used to treat this patient during this hospital stay (1) COPD (chronic obstructive pulmonary disease) (2) CKD (chronic kidney disease) stage 3, GFR 30-59 ml/min (3) Nonischemic cardiomyopathy (4) Hypertension (5) Atrial fibrillation (6) Congestive heart failure (7) Hyperlipidemia (8) Diabetes 1.5, 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 No dysuria CHF, compensated, chronic Afib, CVR, , medical management with Eliquis, DVT prophylaxis Medical management with Lasix, Lanoxin, cardizem, Lopressor Cardiology input appreciated, on Eliquix CKD, 3 -avoid nephrotoxic agents, intake and output Taking PO fluids without cough, labs probably at her baseline DM II -accuchecks AC/HS with low dose ISS and ADA diet CM for dc planning-arrange home health care Patient was seen per Dr. Chowdary today and was felt to be medically stable for discharge Consultations included pulmonary and cardiology. Who will follow up as outpatient if needed Pt Condition on Discharge: Fair Discharge Disposition: Discharge Home Discharge Instructions DIET: Follow Instructions for: Heart Healthy Diet, Diabetic Diet Additional Diet Instructions: Use diabetic/cardiac diet while on steroids Could go back to cardiac only diet if blood sugar stable Activities you can perform: Weight Bearing as Suzie Follow up Referrals: PCP Follow-up - 1 Week Pulmonology - 1 Week with Margarita Akins MD [facility]/ with [facility] New Medications: Potassium Chloride Microencaps (Potassium Chloride Microencaps) 20 Meq Tab 40 MEQ PO DAILY for low potassium MDD 1 for 30 Days, #60 TAB As directed Prednisone (Prednisone) 20 Mg Tab 20 MG PO BID for COPD for 21 Days, #42 TAB 1 tab twice a day 7 days Half tab twice a day 7 days Half tab daily 7 days Continued Medications: Albuterol 8.5 GM Inh (Proair Hfa 8.5 GM Inh) 90 Mcg/Act Aer 1 PUFF INH Q4H PRN for SHORTNESS OF BREATH, #1 INHALER 0 Refills 108 mcg/actuation Apixaban (Eliquis) 2.5 Mg Tab 2.5 MG PO BID for Blood Clot Prevention, TAB 0 Refills Budesonide-Formoterol Inh (Symbicort Inh) 80-4.5 Mcg/Act Aero 2 PUFF INH Q12HR for Asthma Management, #1 INHALER 0 Refills Digoxin (Digoxin) 0.125 Mg Tab 0.125 MG PO DAILY for Regulate Heart Beat, #30 TAB 0 Refills Diltiazem (Cardizem) 120 Mg Tab 120 MG PO DAILY for Angina, #120 TAB 0 Refills Furosemide (Furosemide) 40 Mg Tab 40 MG PO BID, #60 TAB 0 Refills Hydrocodone-Acetaminophen ([place]) 5-325 mg Tab 1 TAB PO Q4H PRN for PAIN, TAB 0 Refills Ipratropium-Albuterol Neb (Duoneb) 0.5-2.5 Mg/3 Ml Neb 1 NEBULE INH Q4HR NEB for SHORTNESS OF BREATH, #120 NEBULE 0 Refills Lactobacillus (Abatinex) 680 Mg (750 Million Cell) Cap Lorazepam (Ativan) 0.5 Mg Tab 0.5 MG PO Q8H PRN for ANXIETY AND/OR AGITATION, TAB 0 Refills Metoprolol Tartrate (Metoprolol Tartrate) 25 Mg Tab 25 MG PO BID, #60 TAB 0 Refills Omeprazole (Omeprazole) 20 Mg Tab 20 MG PO DAILY, #30 TAB 0 Refills Oxybutynin ER 24 HR (Ditropan XL 24 HR) 10 Mg Tab 10 MG PO DAILY for Urinary Symptom Managemen, #30 TAB 0 Refills Pancrelipase (Creon) 12,000-38,000-60,000 Units Cap 1 CAP PO TIDPC for Digestive Aid, #90 CAP 0 Refills Potassium Chloride ER (Potassium Chloride ER) 20 Meq Tab 20 MEQ PO BID for Electrolyte Replacement, #60 TAB 0 Refills Propylthiouracil (Propylthiouracil) 50 Mg Tab 50 MG PO DAILY for Thyroid, #30 TAB 0 Refills Discontinued Medications: Ipratropium Neb (Ipratropium Neb) 0.5 Mg/2.5 Ml Amp 0.5 MG NEB Q4HR NEB for Breathing Treatment, NEBULE 0 Refills Metoclopramide (Reglan) 10 Mg Tab 10 MG PO TIDAC, TAB 0 Refills Additional Information Administered Medications Medications (Trade) Dose Ordered Sig/Melita Route PRN Reason Start Time Stop Time Status Last Admin Dose Admin Sodium Chloride (NS Flush) 2 ml UNSCH PRN IV FLUSH FLUSH AFTER USING IV ACCESS 11/28/16 23:00 12/03/16 05:48 Sodium Chloride (NS Flush) 2 ml BID IV FLUSH 11/29/16 09:00 12/04/16 09:00 Ondansetron HCl (Zofran Inj) 4 mg Q6H PRN IVP NAUSEA OR VOMITING 11/28/16 23:00 12/03/16 22:09 Senna/Docusate Sodium (Constance-Colace) 1 tab BID PO 11/29/16 09:00 12/04/16 08:37 Apixaban (Eliquis) 2.5 mg BID PO 11/29/16 09:00 12/04/16 08:37 Budesonide/ Formoterol Fumarate (Symbicort 80-4.5 Mcg Inh) 2 puff Q12HR INH 11/29/16 09:00 12/04/16 09:00 Furosemide (Lasix) 40 mg BID PO 11/29/16 09:00 Future Hold 12/03/16 09:38 Acetaminophen/ Hydrocodone Bitart ([place] 5-325 Mg) 1 tab Q4H PRN PO PAIN 1-10 11/28/16 23:00 11/30/16 14:23 Lorazepam (Ativan) 0.5 mg Q8H PRN PO ANXIETY AND/OR AGITATION 11/28/16 23:00 12/04/16 00:54 Metoprolol Tartrate (Lopressor) 25 mg BID PO 11/29/16 09:00 12/04/16 09:18 Propylthiouracil (Ptu) 50 mg DAILY PO 11/29/16 09:00 12/04/16 08:37 Pantoprazole Sodium (Protonix) 20 mg DAILY PO 11/29/16 09:00 12/04/16 09:18 Tolterodine Tartrate (Detrol La) 4 mg DAILY PO 11/29/16 09:00 12/04/16 08:37 Ceftriaxone Sodium 1000 mg/ Sodium Chloride 100 ml @ 200 mls/hr Q24H IV 11/29/16 09:00 12/04/16 09:00 Azithromycin 500 mg/Sodium Chloride 250 ml @ 250 mls/hr Q24H IV 11/29/16 09:00 12/04/16 08:05 Diltiazem HCl (Cardizem Cd) 120 mg DAILY PO 11/29/16 09:00 12/04/16 08:36 Insulin Aspart (NovoLOG SUPPLEMENTAL SCALE) 1 ACHS SLIDING SCALE SQ 12/01/16 12:00 12/04/16 13:35 Metoclopramide HCl (Reglan) 5 mg TIDAC PO 12/01/16 17:00 12/04/16 12:00 Digoxin (Lanoxin) 0.125 mg EVERY OTHER DAY PO 12/03/16 09:00 12/03/16 09:38 Amylase/Lipase/ Protease (Creon 12-38-60) 2 cap TIDPC PO 12/01/16 18:30 12/04/16 13:34 Ipratropium [place] (Atrovent Neb) 0.5 mg TID NEB NEB 12/03/16 14:00 12/04/16 13:56 Prednisone (Deltasone) 20 mg BID PO 12/03/16 21:00 12/04/16 09:18 Potassium Chloride (KCl) 40 meq TID PO 12/03/16 18:00 12/04/16 13:34 Sodium Chloride 1,000 ml @ 75 mls/hr [id number] IV 12/03/16 23:45 12/04/16 00:15 Drea Lockhart Dec 04, 2016 16:25
== END 2016-12-04 17:35 | disposition home or self-care (01) | DRG 191 ==
LOC: NEPC 16:16 → NEDA 22:52 → NEPGCP 11-29 00:16 → OBSVTOIN 11-29 18:55 → N04B 11-29 22:56
PROVIDERS: ADMIT Specialist; ATTEND Specialist
DX: J44.1 Chronic obstructive pulmonary disease with (acute) exacerbation (principal); N39.0 Urinary tract infection, site not specified; I42.9 Cardiomyopathy, unspecified; I50.9 Heart failure, unspecified; I12.9 Hypertensive chronic kidney disease with stage 1 through stage 4 chronic kidney disease, or unspecified chronic kidney disease; N18.3 Chronic kidney disease, stage 3 (moderate); D64.9 Anemia, unspecified; E11.9 Type 2 diabetes mellitus without complications; I48.91 Unspecified atrial fibrillation; Z95.810 Presence of automatic (implantable) cardiac defibrillator; E78.5 Hyperlipidemia, unspecified; I25.2 Old myocardial infarction; I65.29 Occlusion and stenosis of unspecified carotid artery; E87.6 Hypokalemia; H91.90 Unspecified hearing loss, unspecified ear; Z87.891 Personal history of nicotine dependence; Z85.89 Personal history of malignant neoplasm of other organs and systems; Z87.01 Personal history of pneumonia (recurrent)
CPT/HCPCS: 71020; 71250; 74000; 76937; 80048; 80162; 81001; 82272; 82550; 82552; 82607; 82746; 82948; 83540; 83550; 83735; 83880; 84100; 84484; 85025; 85027; 85610; 87040; 93005; 94620; 94640; 94664; 96365; 96366; 96367; 96375; G0378; G8987-GP; G8988-GP; J0456; J0696; J1815; J2405; J2920; J2930; J7030; J7050; J7512; J7613; J7644